=== PATIENT | female | born 1995 | race Two or more races ===

== ENCOUNTER → 2020-06-24 15:39 | Outpatient (BNVA) | payer OTHER, SELFPAY | PROVIDERS: PCP Internal Medicine; Visit Provider Physician Assistant ==

== ENCOUNTER → 2020-06-29 07:35 | Outpatient (BNVA) | payer OTHER, SELFPAY | PROVIDERS: PCP Internal Medicine; Visit Provider Surgery ==

== ENCOUNTER 2021-05-18 11:35 | Outpatient (REF) | payer OTHER, SELFPAY ==
[2021-05-18 14:35] LABS: Binax Internal Control QC Valid; Binax Now Covid-19 Ag Negative (Negative)
== END 2021-05-18 11:36 | disposition home or self-care (01) ==
LOC: HO.HMGCLDS 11:35
PROVIDERS: Visit Provider Internal Medicine
DX: Z20.822 Contact with and (suspected) exposure to COVID-19 (principal)
CPT/HCPCS: 36415; C9803

== ENCOUNTER 2021-08-08 15:13 | Outpatient (REF) | payer OTHER, SELFPAY ==
[2021-08-08 17:03] LABS: Appearance Urine CLOUDY; Color Urine YELLOW; Glucose Urine UA NEG (NEG); Leukocyte Esterase Urine 1+ (NEG); Nitrite Urine NEG (NEG); PH 5.5 (5.0-8.0); UACC Culture Trigger YES; Urine Blood TRACE (NEG); Urine Ketones NEG (NEG); Urine Protein NEG (NEG-TRACE)
[2021-08-08 17:31] LABS: Bacteria Urine TRACE /LPF; RBC Urine 0-2 /HPF (0); Squamous Epithelial Cell Urine TRACE /LPF
== END 2021-08-08 15:14 | disposition home or self-care (01) ==
LOC: HO.HMGCLDS 15:13
PROVIDERS: Visit Provider Internal Medicine
DX: R30.0 Dysuria (principal)
CPT/HCPCS: 81001; 81003; 87086

== ENCOUNTER 2021-11-02 11:50 | Outpatient (REF) | payer OTHER, SELFPAY ==
--- NOTE | ~2021-11-02 | XR_ITS ---
EXAMINATION: XR ABDOMEN COMPLETE CLINICAL INDICATION: Noninfective gastroenteritis and colitis. COMPARISON: None TECHNIQUE: 2 views of the abdomen. FINDINGS: There is scattered stool and gas seen in the colon without any significant distention. There is no organomegaly. No radiopaque calculi. The small bowel loops are normal caliber. No gross bony abnormality is seen. XR/XR abdomen 3V IMPRESSION: Mild constipation.
== END 2021-11-02 11:51 | disposition home or self-care (01) ==
LOC: HO.XRAY 11:50
PROVIDERS: PCP Internal Medicine; Visit Provider Internal Medicine
DX: K52.9 Noninfective gastroenteritis and colitis, unspecified (principal)
CPT/HCPCS: 74021

== ENCOUNTER 2022-04-21 10:21 | Outpatient (REF) | payer OTHER, SELFPAY ==
[2022-04-21 10:38] LABS: MANUAL DIFF FLAG NO
[2022-04-21 11:05] LABS: Basophils Percent Auto 0.7 % (0-2); Eosinophils Absolute Auto 0.1 X10*3/uL (0.0-0.4); Hematocrit 37.1 % (37.0-47.0); Imm Gran Abs Auto 0.01 X10*3/uL (0.00-0.03); Imm Gran Pct Auto 0.2 % (0.0-0.4); Lymphocytes Absolute Auto 1.9 X10*3/uL (1.2-4.9); Mean Corpuscular HGB Conc 32.3 g/dl (31.0-35.0); Mean Corpuscular Hemoglobin 24.9 pg (27.0-33.0); Mean Platelet Volume 10.8 fL (9.4-12.3); Monocytes Absolute Auto 0.4 X10*3/uL (0.1-1.2); Monocytes Percent Auto 6.1 % (2-11); Neutrophils Absolute Auto 3.4 x10*3/uL (2.0-8.3); Platelet Count 279 X10*3/uL (160-400); Red Blood Count 4.82 X10*6/uL (4.20-5.50); Red Cell Distribution Width 12.3 % (11.0-16.0); White Blood Count 5.7 X10*3/uL (4.8-10.8)
[2022-04-21 12:02] LABS: Alanine Aminotransferase 11 U/L (0-31); Alkaline Phosphatase 74 U/L (39-117); Anion Gap 13 (12-20); Aspartate Amino Transferase 14 U/L (5-31); Bilirubin Total 0.6 mg/dL (0.0-1.0); Blood Urea Nitrogen 12 mg/dL (9-16); Calcium 9.1 mg/dL (8.4-10.2); Carbon Dioxide 25 mmol/L (22-29); Chloride 106 mmol/L (96-108); Estimated Glomerular Filt Rate > 60; Glucose Random 81 mg/dL (60-115); Potassium 4.5 mmol/L (3.3-5.1); Sodium 139 mmol/L (135-145); TSH reflex Free T4 0.75 uIU/mL (0.32-4.0); Total Protein 6.4 g/dL (6.5-8.0); Vitamin D 25-OH Total 8.9 ng/mL (>30)
[2022-04-21 12:14] LABS: Folate 14.1 ng/mL (> or = 4.0); Vitamin B12 509 pg/mL (200-900)
== END 2022-04-21 10:22 | disposition home or self-care (01) ==
LOC: HO.LAB 10:21
PROVIDERS: PCP Internal Medicine; Visit Provider Nurse Practitioner Family
DX: Z00.00 Encounter for general adult medical examination without abnormal findings (principal)
CPT/HCPCS: 36415; 80053; 82306; 82607; 82746; 84443; 85025

== ENCOUNTER 2022-05-01 14:43 | Outpatient (REF) | payer OTHER, SELFPAY ==
[2022-05-01 17:33] LABS: Estimated Average Glucose 91 mg/dL; Hemoglobin A1c % 4.8 %
[2022-05-05 05:03] LABS: Transglutaminase Ab IgG <1.0 U/mL; Transglutaminase IgA <1.0 U/mL
== END 2022-05-01 14:44 | disposition home or self-care (01) ==
LOC: HO.LAB 14:43
PROVIDERS: PCP Internal Medicine; Visit Provider Nurse Practitioner Family
DX: K20.90 Esophagitis, unspecified without bleeding (principal); K21.9 Gastro-esophageal reflux disease without esophagitis; K58.0 Irritable bowel syndrome with diarrhea; R10.9 Unspecified abdominal pain; E11.9 Type 2 diabetes mellitus without complications
CPT/HCPCS: 36415; 83036; 86003; 86140; 86364

== ENCOUNTER → 2022-07-03 07:52 | Outpatient (BNVA) | payer OTHER, SELFPAY | PROVIDERS: PCP Internal Medicine; Visit Provider Nurse Practitioner Family | DX: Z13.89 Encounter for screening for other disorder (principal) ==

== ENCOUNTER → 2022-07-30 15:28 | Outpatient (BNVA) | payer OTHER, SELFPAY | PROVIDERS: PCP Internal Medicine; Visit Provider Nurse Practitioner Family | DX: Z13.89 Encounter for screening for other disorder (principal) ==

== ENCOUNTER 2022-09-29 19:53 | Emergency (ER) | payer OTHER, SELFPAY ==
--- NOTE | ~2022-09-29 | XR_ITS ---
EXAMINATION: XR CHEST CLINICAL INFORMATION: Cough. COMPARISON: None available. TECHNIQUE: Frontal view of the chest was obtained. FINDINGS: No significant abnormality is noted involving the heart, lungs, mediastinum, bony thorax or soft tissues. XR/XR chest 1V IMPRESSION: Unremarkable chest examination.
[2022-09-29 19:55] VITALS: BP 152/100; PULSE 100; RESP 18; TEMP 36.3; O2SAT 98; BMI 33.9
[2022-09-29 20:25] LABS: COVID-19 Test Negative (Negative); IDNOW Serial# BCCEAD1C
--- NOTE | 2022-09-29 21:10 | ED.URI ---
HPI - URI/Sore Throat General Chief Complaint: Upper Respiratory Symptoms Stated Complaint: Cough, sore throat, fatigue Time Seen by Provider: 09/29/22 21:05 Source: patient Mode of arrival: ambulatory Limitations: no limitations History of Present Illness HPI Narrative: Patient comes to the emergency room complaining of 1 and half weeks of coughing, congestion, chest hurts from coughing so much. Denies fever chills, no shortness of breath. Patient has tried Venessa, Tessalon Perles, [id number] cough syrups that any relief Related Data Home Medications Medication Instructions Recorded Confirmed ascorbic acid 7.5 mg-vit E 7.5 tab PO 07/03/22 08/23/22 unit-biotin 1,250 mcg chewable tablet (Hair,Skin,Nails with Biotin) Previous Rx's Medication Instructions Recorded cholecalciferol (vitamin D3) 50 50 mcg PO DAILY #90 tabs 07/30/22 mcg (2,000 unit) tablet methylcellulose (laxative) 500 mg 500 mg PO DAILY #90 tabs 07/30/22 tablet (Citrucel) magnesium oxide 400 mg (241.3 mg 400 mg PO BEDTIME 30 days #30 tabs 08/15/22 magnesium) tablet riboflavin (vitamin B2) 100 mg 400 mg PO DAILY 30 days #120 tabs 08/15/22 tablet sumatriptan succinate 100 mg tablet 50 - 100 mg PO .COMPLEX PRN 08/15/22 migraine headache 30 days #12 tabs cetirizine 10 mg tablet (Allergy 10 mg PO DAILY PRN allergy 09/25/22 Relief (cetirizine)) symptoms 90 days #90 tabs codeine 10 mg-guaifenesin 100 mg/5 10 ml PO Q4-6H PRN cough #120 mL 09/29/22 mL oral liquid Allergies Allergy/AdvReac Type Severity Reaction Status Date / Time No Known Allergies Allergy Verified 09/29/22 19:55 [No Known Allergies*] Review of Systems Review of Systems: Constitutional : No Weight loss, No Fever, No Chills, No Night Sweats, No Fatigue, No Malaise ENT/Mouth : No Hearing loss, No Ear Pain, No Nasal Congestion, No Sinus Pain, No Hoarseness, No sore throat, No Rhinorrhea, No Swallowing Difficulty Eyes: No Eye Pain, No Swelling, No Redness, No Foreign Body, No Discharge, No Vision Changes Cardiovascular : No Chest Pain, No SOB, No Dyspnea on Exertion, No Orthopnea, No Edema, No Palpitations Respiratory : Complaining of dry No Sputum, No Wheezing, No Smoke Exposure, No Dyspnea Gastrointestinal : No Nausea, No Vomiting, No Diarrhea, No Constipation, No abdominal Pain, No Hematochezia, No Melena Genitourinary : no irregular bleeding, No Dysuria, No Urinary Frequency, No Hematuria, No Urinary Incontinence, No Urgency, No Flank Pain, No Urinary Flow Changes, No Hesitancy Musculoskeletal : Complaining of chest muscle pains from coughing so much No joint pain, No Myalgias, No Joint Swelling Skin : No Skin Lesions, No rash Neuro : No Weakness, No Numbness, No Paresthesias, No Loss of Consciousness, No Dizziness, No Headache Psych : No Anxiety/Panic, No Depression, No SI/HI/AH/VH, No Social Issues, Heme/Lymph: No Bruising, No Bleeding,No Lymphadenopathy Endocrine : No Polyuria, No Polydipsia, No Temperature Intolerance PMFSH Past Medical History Medical History Depression ESA (generalized anxiety disorder) Iron deficiency anemia Migraine without aura, not intractable Migraines Mild major depression, single episode Obesity (BMI 30-39.9) Sickle cell trait Surgical History Hx of tonsillectomy Family History Family History Father No problems noted. Mother Migraines Hypertension Brother No problems noted. Social History Social History Housing: House Alcohol intake: never Patient Tobacco Use Status: Never used Tobacco e-Cigarette/Vaping Use: Never Used Second Hand Smoke Exposure: No Advance Directives: No Advance Directives Information Provided: No service: No Current occupational status: employed Current occupational exposures/hazards: No Cognitive needs: No Hearing needs: No Vision needs: No Physical Exam Vital Signs: Vital Signs: Last Vital Signs Temp 97.3 F 09/29/22 19:55 Pulse 100 09/29/22 19:55 Resp 18 09/29/22 19:55 BP 152/100 H 09/29/22 19:55 Pulse Ox 98 09/29/22 19:55 O2 Del Method Room Air 09/29/22 19:55 BMI result Body Mass Index 33.9 Const: Other: Appearance: Alert. Oriented X3. No acute distress. Eyes: Pupils equal, round and reactive to light. ENT: Pharynx normal. Neck: Normal inspection. Neck supple. No lymph nodes noted. No crepitus CVS: Normal heart rate and rhythm. Pulses normal. Normal S1 and S2 Respiratory: No respiratory distress. Breath sounds normal. No Wheezing. No rales Abdomen: Soft and nontender. No rigidity. No distention. Skin: Skin warm and dry. Normal skin color. Normal skin turgor. Extremities: No lower extremity edema. No Lacerations. No Rash Neuro: Oriented X 3. No motor deficit. No sensory deficit. Moving all extremities. No slurred speech. CN 2 through 12 grossly intact Psych: calm, cooperative, normal affect Medical Decision Making Medical Decision Making MDM Narrative: -patient well-appearing -COVID test is negative -my interpretation of chest x-ray : No fracture ribs, no infiltrates -patient having a viral syndrome, viral bronchitis, antibiotics not indicated Lab Data Labs: Lab Results 09/29/22 Range/Units 20:10 COVID-19 (CHONG) Negative (Negative) COVID-19 Clin Com See Note Radiology Impression Discussion of test interpretation with radiology: I have reviewed the radiologist's reading. Radiologist Impression: INDINGS: No significant abnormality is noted involving the heart, lungs, mediastinum, bony thorax or soft tissues. XR/XR chest 1V IMPRESSION: Unremarkable chest examination. ? Discharge Plan Discharge Clinical Impression: Acute viral bronchitis Patient Disposition: Home, Self-Care Instructions: Acute Bronchitis (ED) Additional Instructions: Please follow-up with your primary care physician tomorrow. If you have any worsening or new symptoms, please return to the emergency room or call 911 Prescriptions: New codeine-guaifenesin 10-100 mg/5 mL liquid 10 ml PO Q4-6H PRN (Reason: cough) Qty: 120 0RF No Action cholecalciferol (vitamin D3) 50 mcg (2,000 unit) tablet 50 mcg PO DAILY Qty: 90 0RF magnesium oxide 400 mg (241.3 mg magnesium) tablet 400 mg PO BEDTIME 30 Days Qty: 30 6RF Rx Instructions: may hold for loose stools riboflavin (vitamin B2) 100 mg tablet 400 mg PO DAILY 30 Days Qty: 120 6RF Rx Instructions: in am sumatriptan succinate 100 mg tablet 50 - 100 mg PO .COMPLEX PRN (Reason: migraine headache) 30 Days Qty: 12 6RF Rx Instructions: 50 - 100 mg orally at onset of headache, may repeat in 2 hrs PRN; max 2 tabs per day or 4 tabs/week (may take with Ibuprofen or Aleve) cetirizine [Allergy Relief (cetirizine)] 10 mg tablet 10 mg PO DAILY PRN (Reason: allergy symptoms) 90 Days Qty: 90 0RF Citrucel 500 mg tablet 500 mg PO DAILY Qty: 90 2RF Rx Instructions: take it with full glass of water Hair, Skin, Nails with Biotin 7.5-7.5-1,250 mg-unit-mcg tablet,chewable PO
== END 2022-09-29 21:25 | disposition home or self-care (01) ==
PROVIDERS: Emergency Provider Emergency Medicine; PCP Internal Medicine
DX: J20.8 Acute bronchitis due to other specified organisms (principal); Z20.822 Contact with and (suspected) exposure to COVID-19
CPT/HCPCS: 71045; 87635; 99282; 99283

== ENCOUNTER → 2022-11-14 16:01 | Outpatient (BNVA) | payer OTHER, SELFPAY | PROVIDERS: PCP Internal Medicine; Visit Provider Nurse Practitioner Family ==

== ENCOUNTER 2022-12-12 15:48 | Outpatient (AMB) | payer OTHER, SELFPAY ==
--- NOTE | 2022-12-12 16:01 | AM.OFFWIN_ITS ---
Intake Vital Signs 12/12/22 16:07 BP 122/90 H Blood Pressure Location Rt brachial Position Sitting Pulse 95 Pulse Source Pulse Oximeter Temp 98.6 F Temp Source Temporal Artery Scan Pulse Oximetry (%) 97 Oxygen Delivery Method Room Air Intake Visit Reasons: EP acute stomach pain (lobby) Intake Note: Patient here because she has been having stomach issues which she was put on f iber and some other meds to help which her GI told her to stop since she was feeling better but the pain this time is different pt states it feels like her intestines are moving around almost she has been having diarrhea for about 3 days. Patient Tobacco Use Status: Never used Tobacco Allergies No Known Allergies [No Known Allergies*] Allergy (Verified 12/17/22 06:22) Medication List - Last Reconciled 12/17/22 by Dirk Gonsales MD ascorbic acid-vitamin E-biotin 7.5-7.5-1,250 mg-unit-mcg (Hair,Skin,Nails with Biotin) tabs PO cetirizine (Allergy Relief (cetirizine)) 10 mg PO DAILY PRN 90 days cholecalciferol (vitamin D3) 50 mcg PO DAILY pantoprazole 40 mg PO DAILY riboflavin (vitamin B2) 400 mg (4 x 100 mg) PO DAILY 30 days sumatriptan succinate 50 - 100 mg orally at onset of headache, may repeat in 2 hrs PRN; max 2 tabs per day or 4 tabs/week (may take with Ibuprofen or Aleve) 30 days Do you need a note to return to daycare/school/sports/work: Yes HPI EP acute stomach pain (lobby) HPI Details See intake note. Patient continues to have abdominal pain at times. No associated diarrhea. For admits to belching and burping and passing a lot of gas. [facility] Medical History Depression ESA (generalized anxiety disorder) Iron deficiency anemia Migraine without aura, not intractable Migraines Mild major depression, single episode Obesity (BMI 30-39.9) Sickle cell trait Surgical History Hx of tonsillectomy Family History Father No problems noted. Mother Migraines Hypertension Brother No problems noted. Social History Housing: House Alcohol intake: never Patient Tobacco Use Status: Never used Tobacco e-Cigarette/Vaping Use: Never Used Second Hand Smoke Exposure: No service: No Current occupational status: employed Current occupational exposures/hazards: No Cognitive needs: No Hearing needs: No Vision needs: No Physical Exam Vital Signs: Last Vital Signs Temp 98.6 F 12/12/22 16:07 Pulse 95 12/12/22 16:07 BP 122/90 H 12/12/22 16:07 Pulse Ox 97 12/12/22 16:07 Oxygen Delivery Method Room Air 12/12/22 16:07 Const General: cooperative and healthy appearing Nutritional Appearance: well nourished Orientation/consciousness: patient oriented x3 Limitations: no limitations HEENT Head: Yes normal to inspection Eyes General: appearance normal, both eyes and all related structures Neck Neck: Yes normal visual inspection Chest Chest palpation & inspection: normal palpation of entire chest wall Resp Effort & Inspection: normal respiratory effort Neuro General: patient oriented x3 Assessment & Plan Assessment & Plan (1) Abdominal pain: Code(s): R10.9 - Unspecified abdominal pain Plan: Patient was advised to follow-up with her primary care provider for more workup. Meanwhile pantoprazole has been prescribed for relief of symptoms. Patient was explained that this measure is temporary and it will help till she sees her primary care provider. Medications: New pantoprazole 40 mg PO DAILY 30 tabs 0RF Coding Level of Care Code Est Pt Level 3 (47806) Diagnoses Abdominal pain R10.9
[2022-12-12 16:07] VITALS: BP 122/90; PULSE 95; TEMP 37; O2SAT 97
== END 2022-12-12 16:21 | disposition home or self-care (01) ==
PROVIDERS: PCP Internal Medicine; Visit Provider Internal Medicine
DX: R10.9 Unspecified abdominal pain (principal)
CPT/HCPCS: 99213

== ENCOUNTER 2022-12-19 09:20 | Outpatient (REF) | payer OTHER, SELFPAY ==
[2022-12-19 11:21] LABS: Alanine Aminotransferase 11 U/L (0-31); Alkaline Phosphatase 64 U/L (39-117); Aspartate Amino Transferase 14 U/L (5-31); Bilirubin Direct 0.2 mg/dL (0.0-0.5); Bilirubin Total 0.7 mg/dL (0.0-1.0); Lipase 37 U/L (8-78); Total Protein 6.9 g/dL (6.5-8.0)
[2022-12-19 11:50] LABS: Folate 12.2 ng/mL (> or = 4.0); Vitamin B12 541 pg/mL (200-900)
[2022-12-24 15:18] LABS: Vitamin D 25-OH, D2 <4 ng/mL; Vitamin D 25-OH, D3 14 ng/mL; Vitamin D 25-OH, Total 14 ng/mL (30-100)
== END 2022-12-19 09:21 | disposition home or self-care (01) ==
LOC: HO.LAB 09:20
PROVIDERS: PCP Internal Medicine; Visit Provider Nurse Practitioner Family
DX: R10.9 Unspecified abdominal pain (principal); R19.7 Diarrhea, unspecified; E55.9 Vitamin D deficiency, unspecified
CPT/HCPCS: 36415; 80076; 82306; 82607; 82746; 83690

== ENCOUNTER 2022-12-25 09:12 | Outpatient (AMB) | payer OTHER, SELFPAY ==
[2022-12-25 09:15] VITALS: BP 120/84; PULSE 96; O2SAT 98; BMI 34.6
--- NOTE | 2022-12-25 09:15 | MHC.OFFVIS ---
Intake Vital Signs 12/25/22 09:15 Height 5 ft 6 in Weight 214 lb 4 oz BMI 34.6 BP 120/84 Blood Pressure Location Lt brachial Position Sitting Pulse 96 Pulse Source Pulse Oximeter Pulse Oximetry (%) 98 Oxygen Delivery Method Room Air Intake Visit Reasons: 2m follow up Migraine - Confirmed Intake Note: Pt presents as a 2 month f/u migraines. Going good I guess, Still getting them. Any time I get pain I take the medication and it helps a little but it makes me drowsy. 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 Allergies No Known Allergies [No Known Allergies*] Allergy (Verified 12/25/22 09:18) Medication List - Last Reconciled 12/25/22 by MERLIN Rai ascorbic acid-vitamin E-biotin 7.5-7.5-1,250 mg-unit-mcg (Hair,Skin,Nails with Biotin) tabs PO cetirizine (Allergy Relief (cetirizine)) 10 mg PO DAILY PRN 90 days cholecalciferol (vitamin D3) 50 mcg PO DAILY pantoprazole 40 mg PO DAILY riboflavin (vitamin B2) 400 mg (4 x 100 mg) PO DAILY 30 days rizatriptan 5 - 10 mg (0.5 - 1 x 10 mg) PO Q2H PRN 21 days sumatriptan succinate 50 - 100 mg orally at onset of headache, may repeat in 2 hrs PRN; max 2 tabs per day or 4 tabs/week (may take with Ibuprofen or Aleve) 30 days HPI HPI Comments History of Present Illness Details 27-yr-old female presents for f/u visit for migraine Pt reports she is having a daily pounding pain a/w photophobia which she attributes to an increase in her GI s/s (postprandial and generlaized pain, diarrhea after eating). She is f/b GI. She has had 3 typical migraines in the past month. Sumatriptan can be helpful but causes sleepiness. She is not sleeping well. She snores, has difficulty initiating sleep and falling back to sleep, wakes up tired, always feel tired. She is rarely sedentary. [facility] Medical History Depression ESA (generalized anxiety disorder) Iron deficiency anemia Migraine without aura, not intractable Migraines Mild major depression, single episode Obesity (BMI 30-39.9) Sickle cell trait Surgical History Hx of tonsillectomy Family History Father No problems noted. Mother Migraines Hypertension Brother No problems noted. Social History Housing: House Alcohol intake: never Patient Tobacco Use Status: Never used Tobacco e-Cigarette/Vaping Use: Never Used Second Hand Smoke Exposure: No service: No Current occupational status: employed Current occupational exposures/hazards: No Cognitive needs: No Hearing needs: No Vision needs: No Review of Systems Const All systems reviewed & are unremarkable except as noted in HPI and below Physical Exam Vital Signs: Last Vital Signs Pulse 96 12/25/22 09:15 BP 120/84 12/25/22 09:15 Pulse Ox 98 12/25/22 09:15 Oxygen Delivery Method Room Air 12/25/22 09:15 BMI result Body Mass Index 34.6 Const General: cooperative and no acute distress Orientation/consciousness: patient oriented x3 HEENT Head: Yes normocephalic Resp Effort & Inspection: normal respiratory effort and able to speak in complete sentences Neuro General: patient oriented x3, gait normal and CN's II-XI intact bilaterally Cognition (Neuro): normal cognition Motor exam (neuro): 5/5 motor strength present throughout Psych Appearance: grossly normal Mental Status: mental status grossly normal Speech and movement: Normal speech and movement present Affect: normal affect Attitude: cooperative Thought process: Normal thought process present Thought content: Normal thought content present Insight: Good insight present (Psych) Judgement: Good judgement present (Psych) Assessment & Plan Assessment & Plan (1) Sleep difficulties: Code(s): G47.9 - Sleep disorder, unspecified (2) Excessive daytime sleepiness: Comment: EDS 10 Code(s): G47.19 - Other hypersomnia (3) Migraine without aura, not intractable: Code(s): G43.009 - Migraine without aura, not intractable, without status migrainosus Plan Pt advised to undergo HST to assess for sleep apnea. For acute headache treatment: Hold Sumatriptan to 50-100mg- causes sleepiness. Trial Rizatriptan prn- in hopes this is better tolerated. Previous acute migraine medication trials: Unsure Acute migraine medication contraindications: None at this time ? For headache prevention medication: Continue Riboflavin 400mg qam Stopped Magnesium 400mg qhs- d/t GI s/s. Previous migraine prevention medication trials: Topiramate- ineffective and caused mood changes. Migraine prevention medication contraindications: None at this time. Future considerations: Amitriptyline. ? f/u in 3-4 months or sooner Orders: Orders RT home sleep study Today E66.9 - Obesity, unspecified, G47.19 - Other hypersomnia, G47.9 - Sleep disorder, unspecified, R06.83 - Snoring Medications: New rizatriptan max 2 tabs per day or 4 tabs per week 5 - 10 mg (0.5 - 1 x 10 mg) PO Q2H 21 days PRN 12 tabs 3RF migraine headache Quality Reporting (2019) Adult ([facility] 138/2//69) Smoking risk assessment performed?: Yes Patient Tobacco Use Status: Never used Tobacco Coding Level of Care Code Est Pt Level 4 (74757) Diagnoses Sleep difficulties G47.9 Excessive daytime sleepiness G47.19 Migraine without aura, not intractable G43.009
== END 2022-12-25 09:53 | disposition home or self-care (01) ==
PROVIDERS: Visit Provider Nurse Practitioner Family
DX: G47.9 Sleep disorder, unspecified (principal); G47.19 Other hypersomnia; G43.009 Migraine without aura, not intractable, without status migrainosus
CPT/HCPCS: 99214

== ENCOUNTER → 2022-12-25 09:12 | Outpatient (BNVA) | payer OTHER, SELFPAY | PROVIDERS: Visit Provider Nurse Practitioner Family ==

== ENCOUNTER 2022-12-26 08:50 | Outpatient (REF) | payer OTHER, SELFPAY ==
[2023-01-03 22:24] LABS: Pancreatic Elastase-1 >500 mcg/g
== END 2022-12-26 08:51 | disposition home or self-care (01) ==
LOC: HO.LNP 08:50
PROVIDERS: Visit Provider Nurse Practitioner Family
DX: R10.9 Unspecified abdominal pain (principal)
CPT/HCPCS: 82656

== ENCOUNTER → 2023-01-29 09:56 | Outpatient (REF) | payer OTHER, SELFPAY | LOC: HO.SL 09:56 | PROVIDERS: PCP Internal Medicine; Visit Provider Nurse Practitioner Family | DX: G47.9 Sleep disorder, unspecified (principal); G47.19 Other hypersomnia; E66.9 Obesity, unspecified; R06.83 Snoring | CPT/HCPCS: 95806 ==

== ENCOUNTER → 2023-01-29 10:06 | Outpatient (BNV) | payer OTHER, SELFPAY | PROVIDERS: PCP Internal Medicine; Visit Provider Psychiatry & Neurology Neurology | DX: R06.83 Snoring (principal) | CPT/HCPCS: 95806 ==

== ENCOUNTER 2023-04-09 12:39 | Outpatient (AMB) | payer OTHER, SELFPAY ==
[2023-04-09 12:44] VITALS: BP 126/80; BMI 34.5
--- NOTE | 2023-04-09 12:44 | MHC.PC.OV ---
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 Accompanied by: Self / Same As Patient Allergies No Known Allergies [No Known Allergies*] Allergy (Verified 04/09/23 12:57) Medication List - Last Reconciled 04/09/23 by Liza Carlos MD ascorbic acid-vitamin E-biotin 7.5-7.5-1,250 mg-unit-mcg (Hair,Skin,Nails with Biotin) tabs PO cetirizine (Allergy Relief (cetirizine)) 10 mg PO DAILY PRN 90 days cholecalciferol (vitamin D3) 50 mcg PO DAILY pantoprazole 40 mg PO DAILY riboflavin (vitamin B2) 400 mg (4 x 100 mg) PO DAILY 30 days rizatriptan 5 - 10 mg (0.5 - 1 x 10 mg) PO Q2H PRN 21 days sumatriptan succinate 50 - 100 mg orally at onset of headache, may repeat in 2 hrs PRN; max 2 tabs per day or 4 tabs/week (may take with Ibuprofen or Aleve) 30 days Tobacco use date assessed: 08/23/22 Dental Screening Dental Screen Date: 04/09/23 Did you have a dental visit in the last 12 months?: Yes Did you have a dental problem in the last 6 months where you did not have access to dental care?: No Was dental information given to patient?: Patient has dentist HPI HPI Comments History of Present Illness Details This is a 28-year-old female that comes for her physical exam. Last Pap smear was 2019 and was normal. No chest pain or shortness of breath. Migraines follow by Neurology. [facility] Medical History ESA (generalized anxiety disorder) Migraines Mild major depression, single episode Depression Obesity (BMI 30-39.9) Migraine without aura, not intractable Iron deficiency anemia Sickle cell trait Surgical History Hx of tonsillectomy Family History (Updated 04/09/23 @ 13:00 by Liza Carlos MD) Father Hypertension Mother Migraines Hypertension Brother No problems noted. Social History Housing: House Alcohol intake: never Patient Tobacco Use Status: Never used Tobacco e-Cigarette/Vaping Use: Never Used Second Hand Smoke Exposure: No service: No Current occupational status: employed Current occupational exposures/hazards: No Cognitive needs: No Hearing needs: No Vision needs: No Questionnaire Thrive Questionnaire Date Thrive assessed: 08/23/22 ESA-7 AMB Questionnaire ESA-7 Date ESA - 7 assessed: 08/23/22 Source: Developed by Drs. Rd Garnett, Anna Armstrong, Jhonny Galan and colleagues, with an educational erin from [employer]. Review of Systems Const All systems reviewed & are unremarkable except as noted in HPI and below Eyes Reports no additional complaints, Denies change in vision and Denies other visual disturbances Card Denies chest pain at rest, Denies chest pain with activity, Denies edema, Denies irregular heart rhythm, Denies claudication, Denies dyspnea, Denies dyspnea on exertion, Denies orthopnea, Denies paroxysmal nocturnal dyspnea and Denies slow heart rate Resp Denies cough, Denies dyspnea and Denies dyspnea on exertion GI Denies abdominal pain, Denies change in bowel habits, Denies excessive flatus, Denies nausea and Denies vomiting Denies urinary incontinence, Denies urinary hesitancy and Denies urinary urgency Musc Denies abnormal gait, Denies atrophy, Denies deformity and Denies limited range of motion Skin/Breast Denies bleeding lesions, Denies changing lesions and Denies rash Neuro Denies abnormal gait, Denies behavioral changes, Denies confusion and Denies lack of coordination Psych Denies behavioral changes and Denies confusion Physical exam (Primary Care) Vital Signs: Last Vital Signs BP 126/80 04/09/23 12:44 BMI result Body Mass Index 34.5 Tobacco/Smoking Status: Tobacco use Status Tobacco use date assessed 08/23/22 04/09/23 12:52 Patient Tobacco Use Status Never used Tobacco 04/09/23 12:52 e-Cigarette/Vaping Use Never Used 04/09/23 12:52 Thrive Assessment: Date of Thrive Assessment Date Thrive assessed 08/23/22 04/09/23 12:52 Const General: No confusion Orientation/consciousness: patient oriented x3 and No confusion HENMT Head: Yes normal to inspection, Yes normocephalic and Yes atraumatic Ears: external ears normal Eyes General: appearance normal, both eyes and all related structures Eyelids: Yes eyelids normal Conjunctivae: conjunctivae normal Neck Neck: Yes normal visual inspection and Yes supple Resp Effort & Inspection: normal respiratory effort Auscultation: clear to auscultation bilaterally Cardio Jugular venous distension: no JVD Rate: regular rate Rhythm: regular rhythm Heart sounds: S1 normal heart sound present and S2 normal heart sound present GI Inspection: Yes normal to inspection Palpation (GI): Soft to palpation and nontender Auscultation: normal bowel sounds Skin General skin exam: no rashes or lesions noted Neuro General: patient oriented x3, no focal motor deficits and No confusion Extrem General: Yes full ROM Psych Appearance: grossly normal Office Procedures Flu Questionnaire Does the patient have a severe egg allergy?: No Immunizations flu vacc [id number] 6mos up(PF) 60 mcg(15 mcgx4)/0.5 mL IM syringe Performing Provider: Liza Carlos MD [facility] Documented (not given) by: JOEL Low on 04/09/23 12:53 Reason Not Given: Patient Refused Assessment and Plan Assessment & Plan (1) Adult general medical exam: Code(s): Z00.00 - Encounter for general adult medical examination without abnormal findings Plan: Repeat in a year. Orders: Orders Vitamin D 25-OH Total Today E55.9 - Vitamin D deficiency, unspecified Influenza [id number] Immunization Today Z23 - Encounter for immunization Lipid Panel Today Z00.00 - Encounter for general adult medical examination without abnormal findings Comprehensive [place]. Panel Fast Today Z00.00 - Encounter for general adult medical examination without abnormal findings Coding Level of Care Code Est Pt Prev Care 18-39y(27386) Diagnoses Adult general medical exam Z00.00 Time Spent (min) 32
== END 2023-04-09 13:08 | disposition home or self-care (01) ==
PROVIDERS: Visit Provider Internal Medicine
DX: Z00.00 Encounter for general adult medical examination without abnormal findings (principal)
CPT/HCPCS: 99395

== ENCOUNTER 2023-05-29 12:33 | Outpatient (AMB) | payer OTHER, SELFPAY ==
[2023-05-29 12:41] VITALS: BP 122/78; PULSE 78; TEMP 36.9; O2SAT 97; BMI 34.5
--- NOTE | 2023-05-29 12:41 | MHC.OFFWIV ---
Intake Vital Signs 05/29/23 12:41 Height 5 ft 6 in Weight 214 lb BMI 34.5 BP 122/78 Blood Pressure Location Rt brachial Position Sitting Pulse 78 Pulse Source Pulse Oximeter Temp 98.4 F Temp Source Oral Pulse Oximetry (%) 97 Oxygen Delivery Method Room Air Intake Visit Reasons: EST/cough and head pressure(lobby masked) Intake Note: pt is here for c.o cough, head pressure Patient Tobacco Use Status: Never used Tobacco Allergies No Known Allergies [No Known Allergies*] Allergy (Verified 05/29/23 12:41) Do you need a note to return to daycare/school/sports/work: Yes HPI HPI Comments History of Present Illness Details This is a 28-year-old female with a past medical history of migraine headaches presenting for evaluation of a dry cough and fever that she has had the past 2 days. Patient states that she returned over the weekend from a 6 day cruise and this is when her symptoms started. Patient took a test for COVID-19 at home which was negative however she states all 4 members of her family have similar symptoms. Patient denies having any headache, sore throat, ear pain or shortness of breath. [facility] Medical History SEA (generalized anxiety disorder) Migraines Mild major depression, single episode Depression Obesity (BMI 30-39.9) Migraine without aura, not intractable Iron deficiency anemia Sickle cell trait Surgical History Hx of tonsillectomy Family History Father Hypertension Mother Migraines Hypertension Brother No problems noted. Social History Housing: House Alcohol intake: never Patient Tobacco Use Status: Never used Tobacco e-Cigarette/Vaping Use: Never Used Second Hand Smoke Exposure: No service: No Current occupational status: employed Current occupational exposures/hazards: No Cognitive needs: No Hearing needs: No Vision needs: No Review of Systems Const All systems reviewed & are unremarkable except as noted in HPI and below Eyes Reports no additional complaints ENT Reports no additional complaints, Denies otalgia and Denies sore throat Card Reports as per HPI, Denies chest pain and Denies dyspnea Resp Denies chest congestion, Reports cough, Denies hemoptysis and Denies dyspnea Psych Reports no additional complaints Gopi/Lymph Reports no additional complaints Aller/Immun Reports no additional complaints Physical Exam Vital Signs: Last Vital Signs Temp 98.4 F 05/29/23 12:41 Pulse 78 05/29/23 12:41 BP 122/78 05/29/23 12:41 Pulse Ox 97 05/29/23 12:41 Oxygen Delivery Method Room Air 05/29/23 12:41 BMI result Body Mass Index 34.5 Afebrile Const General: cooperative, healthy appearing, comfortable and no acute distress Nutritional Appearance: well nourished Orientation/consciousness: patient oriented x3 Limitations: no limitations HEENT Head: Yes normal to inspection Ears: hearing grossly normal bilaterally, external ears normal, TM's normal bilaterally and EAC's normal General nose exam: Normal external nose present Face and sinus: Yes normal facial exam and Yes sinuses nontender Mouth: Normal oral and palatal mucosa present Throat: Yes postnasal drainage Eyes Eyelids: Yes eyelids normal Conjunctivae: conjunctivae normal Sclerae: sclerae normal Corneas: corneas normal Pupils: Equal, round and reactive pupils present EOM: EOMs intact bilaterally Neck Lymphatic: no lymphadenopathy noted Resp Effort & Inspection: normal respiratory effort, normal respiratory pattern, no cough and no use of accessory muscles Auscultation: clear to auscultation bilaterally and lung sounds not diminished Cardio Rate: regular rate Rhythm: regular rhythm Skin General skin exam: no rashes or lesions noted Neuro General: patient oriented x3 Cranial nerves: Yes Equal, round and reactive pupils present Psych Appearance: grossly normal Mental Status: mental status grossly normal Insight: Good insight present (Psych) Judgement: Good judgement present (Psych) Assessment & Plan Assessment & Plan (1) Upper respiratory infection: Comment: Patient is afebrile in no acute distress, not hypoxic. Code(s): J06.9 - Acute upper respiratory infection, unspecified Qualifiers: URI type: unspecified viral URI Qualified Code(s): J06.9 - Acute upper respiratory infection, unspecified Plan: Ibuprofen or Tylenol as needed if fevers recur; SARS panel pending. Coding Level of Care Code Est Pt Level 3 (10813) Diagnoses Viral upper respiratory tract infection J06.9 URI type: unspecified viral URI Time Spent (min) 20
== END 2023-05-29 14:05 | disposition home or self-care (01) ==
PROVIDERS: PCP Internal Medicine; Visit Provider Physician Assistant
DX: J06.9 Acute upper respiratory infection, unspecified (principal)
CPT/HCPCS: 99213

== ENCOUNTER 2023-05-29 16:26 | Outpatient (REF) | payer OTHER, SELFPAY ==
[2023-05-29 18:24] LABS: Influenza A PCR POSITIVE (Negative); Influenza B PCR NEGATIVE (Negative); Resp Syncy Virus RNA Qual PCR NEGATIVE (Negative); SARS COV2 PCR INHOUSE NEGATIVE (Negative)
== END 2023-05-29 16:27 | disposition home or self-care (01) ==
LOC: HO.LNP 16:26
PROVIDERS: Visit Provider Internal Medicine
DX: Z11.52 Encounter for screening for COVID-19 (principal); Z20.822 Contact with and (suspected) exposure to COVID-19; R09.89 Other specified symptoms and signs involving the circulatory and respiratory systems
CPT/HCPCS: 0241U

== ENCOUNTER → 2023-07-12 15:30 | Outpatient (BNVA) | payer OTHER, SELFPAY | PROVIDERS: PCP Internal Medicine; Visit Provider Physician Assistant | DX: S60.471A Other superficial bite of left index finger, initial encounter (principal); W54.0XXA Bitten by dog, initial encounter | CPT/HCPCS: 99203 ==

== ENCOUNTER 2023-07-17 14:37 | Outpatient (AMB) | payer OTHER, SELFPAY ==
[2023-07-17 14:47] VITALS: BMI 34.9
--- NOTE | 2023-07-17 14:47 | MHC.OFFVIS ---
Intake Vital Signs 07/17/23 14:47 Height 5 ft 6 in Weight 216 lb BMI 34.9 Intake Visit Reasons: f/u appt-Conf Intake Note: Patient presents for follow up appt. I'm still having headaches but I think it's due to the lack of sleep. Allergies No Known Allergies [No Known Allergies*] Allergy (Verified 07/17/23 14:52) HPI HPI Comments History of Present Illness Details 28-yr-old female presents for f/u visit. Pt denies any significant interval medical changes. Pt has had one severe headache since the last visit 6 months ago. She can still have mild headaches r/t poor sleep. The Rizatriptan and sleep helps. Baseline headache characteristics: Prodrome of head pressure f/b Severe frontal region pounding (like being hit on the head) a/w Nausea, photophobia, phonophobia. Postdrome of tiredness and trouble sleeping. Her sleep study was normal- AHI 0.9/hr w/ O2 [place] 90%. She is able to fall asleep, but once she wakes up she cannot fall back asleep for a few hours, and then falls back asleep shortly before she needs to wake up in the am. Tosses and turns. Prone to ruminating thoughts. thinks she has anxiety- but pt does not believe this. Denies restlessness when sitting or leg cramps. Working 2 jobs- [employer] in the am and works as a [employer] 5-7:30/8pm. Listens to her phone- a you tube video where people are talking, like a Telenovela or citizenship question review- then falls asleep. But once she wakes up, her has shut off her phone, and she does not use it again. Her is using a CPAP- this does not bother her. No caffeine use. In the past month- she is eating better- stopped all Cola intake or sugary coffees. She is exercising 3 x's per week- cardio x's 1.5 hrs (around 5pm). Bedtime is between 10-11pm and Wake up time 6:30-7am. In general she does not feel like a morning person. [facility] Medical History ESA (generalized anxiety disorder) Migraines Mild major depression, single episode Depression Obesity (BMI 30-39.9) Migraine without aura, not intractable Iron deficiency anemia Sickle cell trait Surgical History Hx of tonsillectomy Family History Father Hypertension Mother Migraines Hypertension Brother No problems noted. Social History Housing: House Alcohol intake: never Patient Tobacco Use Status: Never used Tobacco e-Cigarette/Vaping Use: Never Used Second Hand Smoke Exposure: No service: No Current occupational status: employed Current occupational exposures/hazards: No Cognitive needs: No Hearing needs: No Vision needs: No Physical Exam Vital Signs: BMI result Body Mass Index 34.9 Const General: cooperative and no acute distress Orientation/consciousness: patient oriented x3 Resp Effort & Inspection: normal respiratory effort and able to speak in complete sentences Neuro General: patient oriented x3 Cranial nerves: Yes CN's II-XII intact bilaterally Cognition (Neuro): normal cognition Psych Appearance: grossly normal Mental Status: mental status grossly normal Speech and movement: Normal speech and movement present Affect: normal affect Attitude: cooperative Assessment & Plan Assessment & Plan (1) Excessive daytime sleepiness: Comment: EDS 10 Code(s): G47.19 - Other hypersomnia (2) Snoring: Code(s): R06.83 - Snoring (3) Migraine without aura: Code(s): G43.009 - Migraine without aura, not intractable, without status migrainosus (4) Sleep difficulties: Code(s): G47.9 - Sleep disorder, unspecified Plan For sleep difficulties: May try OTC Melatonin 3-6mg q evening. Discussed strategies to improve sleep hygiene. Pt may benefit from reading/listening to CBTi resources- list of resources shared w/ pt. Future considerations- in-lab PSG. For acute headache treatment: Continue Rizatriptan prn- in hopes this is better tolerated. Previous acute migraine medication trials: Sumatriptan to 50-100mg- caused sleepiness Acute migraine medication contraindications: None at this time ? For headache prevention medication: Continue Riboflavin 400mg qam Previous migraine prevention medication trials: Topiramate- ineffective and caused mood changes. Magnesium 400mg qhs- d/t GI s/s. Migraine prevention medication contraindications: None at this time. Future considerations: Amitriptyline. ? f/u in 3-4 months or sooner Quality Reporting (2019) Adult ([facility] 13807/04/68) Smoking risk assessment performed?: Yes Patient Tobacco Use Status: Never used Tobacco Coding Level of Care Code Est Pt Level 4 (95078) Diagnoses Excessive daytime sleepiness G47.19 Snoring R06.83 Migraine without aura G43.009 Sleep difficulties G47.9
== END 2023-07-17 15:57 | disposition home or self-care (01) ==
PROVIDERS: PCP Internal Medicine; Visit Provider Nurse Practitioner Family
DX: G47.19 Other hypersomnia (principal); R06.83 Snoring; G43.009 Migraine without aura, not intractable, without status migrainosus; G47.9 Sleep disorder, unspecified
CPT/HCPCS: 99214

== ENCOUNTER → 2023-07-17 14:37 | Outpatient (BNVA) | payer OTHER, SELFPAY | PROVIDERS: PCP Internal Medicine; Visit Provider Nurse Practitioner Family ==

== ENCOUNTER 2023-11-05 08:03 | Outpatient (AMB) | payer OTHER, SELFPAY ==
[2023-11-05 08:10] VITALS: BP 126/80; PULSE 79; TEMP 37; O2SAT 97; BMI 34.4
--- NOTE | 2023-11-05 08:10 | MHC.OFFWIV ---
Intake Vital Signs 11/05/23 08:10 Height 5 ft 6 in Weight 213 lb BMI 34.4 BP 126/80 Blood Pressure Location Lt brachial Position Sitting Pulse 79 Pulse Source Pulse Oximeter Temp 98.6 F Temp Source Oral Pulse Oximetry (%) 97 Intake Visit Reasons: EP headache/body congestion cough Intake Note: pt is here for headache, body ache with cough and congestion Patient Tobacco Use Status: Never used Tobacco Allergies No Known Allergies [No Known Allergies*] Allergy (Verified 11/05/23 08:14) Do you need a note to return to daycare/school/sports/work: Yes HPI HPI Comments History of Present Illness Details 28-year-old female presents today complaining of myalgias fever and fatigue for the last 2 days. She was positive for COVID-19 at home [facility] Medical History ESA (generalized anxiety disorder) Migraines Mild major depression, single episode Depression Obesity (BMI 30-39.9) Migraine without aura, not intractable Iron deficiency anemia Sickle cell trait Surgical History Hx of tonsillectomy Family History Father Hypertension Mother Migraines Hypertension Brother No problems noted. Social History Housing: House Alcohol intake: never Patient Tobacco Use Status: Never used Tobacco e-Cigarette/Vaping Use: Never Used Second Hand Smoke Exposure: No service: No Current occupational status: employed Current occupational exposures/hazards: No Cognitive needs: No Hearing needs: No Vision needs: No Review of Systems Const All systems reviewed & are unremarkable except as noted in HPI and below Eyes Reports no additional complaints ENT Reports nasal congestion Card Reports no additional complaints Resp Reports cough (Mild) GI Reports no additional complaints Reports no additional complaints Musc Reports myalgias Skin/Breast Reports system reviewed and no additional complaints, except as documented Physical Exam Vital Signs: Last Vital Signs Temp 98.6 F 11/05/23 08:10 Pulse 79 11/05/23 08:10 BP 126/80 11/05/23 08:10 Pulse Ox 97 11/05/23 08:10 BMI result Body Mass Index 34.4 HEENT Head: Yes normal to inspection, Yes normocephalic and Yes atraumatic Ears: hearing grossly normal bilaterally and TM's normal bilaterally Throat: Yes posterior oropharynx normal Resp Effort & Inspection: normal respiratory effort Auscultation: clear to auscultation bilaterally Cardio Rate: regular rate Rhythm: regular rhythm Assessment & Plan Assessment & Plan (1) COVID: Code(s): U07.1 - COVID-19 Plan: The patient was put on Paxlovid and given a note for work. She will push fluids and rest at home Plan See plan Orders: Orders SARS-CoV2/FLU/RSV Today U07.1 - COVID-19 Medications: New nirmatrelvir-ritonavir 300 mg (150 mg x 2)-100 mg (Paxlovid) take TWO 150 mg tablets of nirmatrelvir with ONE 100 mg tablet of ritonavir twice daily for 5 days PO 30 ea 0RF Coding Level of Care Code Est Pt Level 3 (41680) Diagnoses COVID U07.1
== END 2023-11-05 09:17 | disposition home or self-care (01) ==
PROVIDERS: PCP Internal Medicine; Visit Provider Physician Assistant Medical
DX: U07.1 COVID-19 (principal)
CPT/HCPCS: 99213

== ENCOUNTER 2023-11-05 09:00 | Outpatient (REF) | payer OTHER, SELFPAY | END 2023-11-05 09:01 | disposition home or self-care (01) | LOC: HO.LAB 09:00 | PROVIDERS: Visit Provider Physician Assistant Medical | DX: Z13.89 Encounter for screening for other disorder (principal) ==

== ENCOUNTER 2023-11-05 11:50 | Outpatient (REF) | payer OTHER, SELFPAY ==
[2023-11-05 12:55] LABS: Influenza A PCR NEGATIVE (Negative); Influenza B PCR NEGATIVE (Negative); Resp Syncy Virus RNA Qual PCR NEGATIVE (Negative); SARS COV2 PCR INHOUSE POSITIVE (Negative)
== END 2023-11-05 11:51 | disposition home or self-care (01) ==
LOC: HO.LNP 11:50
PROVIDERS: Visit Provider Physician Assistant Medical
DX: U07.1 COVID-19 (principal)
CPT/HCPCS: 0241U

== ENCOUNTER 2023-12-12 19:00 | Emergency (ER) | payer OTHER, SELFPAY ==
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
[2023-12-12 19:14] VITALS: BP 135/93; PULSE 93; RESP 18; TEMP 36.6; O2SAT 98; BMI 34.7
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
[2023-12-12] MEDS: Ketorolac Tromethamine 30 MG/ML VIAL IM (20:28)
--- NOTE | 2023-12-12 20:34 | PC.NURSE ---
pt medicated for pain per order, pharmacy called for missing medication
[2023-12-12] MEDS: SUMAtriptan succinate 100 MG TABLET PO (20:42)
[2023-12-12 20:46] VITALS: BP 142/91; PULSE 78; RESP 16; TEMP 36.3; O2SAT 98
[2023-12-12 21:15] VITALS: BP 142/91; PULSE 78; RESP 16; TEMP 36.3; O2SAT 98
== END 2023-12-12 21:15 | disposition home or self-care (01) ==
PROVIDERS: Emergency Provider Emergency Medicine; PCP Internal Medicine
DX: Z04.1 Encounter for examination and observation following transport accident (principal); G43.909 Migraine, unspecified, not intractable, without status migrainosus; M25.512 Pain in left shoulder; Z79.899 Other long term (current) drug therapy
CPT/HCPCS: 73030; 96372; 99283; 99284; J1885

== ENCOUNTER 2023-12-20 12:24 | Outpatient (AMB) | payer OTHER, SELFPAY ==
[2023-12-20 12:31] VITALS: BP 118/78; PULSE 78; O2SAT 99; BMI 34.5
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
== END 2023-12-20 13:06 | disposition home or self-care (01) ==
PROVIDERS: PCP Internal Medicine; Visit Provider Nurse Practitioner Family
DX: S46.912A Strain of unspecified muscle, fascia and tendon at shoulder and upper arm level, left arm, initial encounter (principal); M54.50 Low back pain, unspecified
CPT/HCPCS: 99214

== ENCOUNTER 2024-03-24 07:07 | Outpatient (RCR) | payer OTHER, SELFPAY ==
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
== END 2024-03-24 07:58 | disposition home or self-care (01) ==
LOC: HO.PT 07:07
PROVIDERS: PCP Internal Medicine; Visit Provider Nurse Practitioner Family
DX: S46.912D Strain of unspecified muscle, fascia and tendon at shoulder and upper arm level, left arm, subsequent encounter (principal)
CPT/HCPCS: 97110; 97112; 97140; 97162; 97530

== ENCOUNTER 2024-06-05 13:25 | Outpatient (AMB) | payer OTHER, SELFPAY ==
[2024-06-05 13:29] VITALS: BMI 35.2
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
== END 2024-06-05 14:30 | disposition home or self-care (01) ==
PROVIDERS: PCP Internal Medicine; Visit Provider Nurse Practitioner Family
DX: G43.009 Migraine without aura, not intractable, without status migrainosus (principal); G47.9 Sleep disorder, unspecified
CPT/HCPCS: 99214

== ENCOUNTER → 2024-06-05 13:25 | Outpatient (BNVA) | payer OTHER, SELFPAY | PROVIDERS: PCP Internal Medicine; Visit Provider Nurse Practitioner Family ==

== ENCOUNTER 2024-06-08 07:53 | Outpatient (AMB) | payer OTHER, SELFPAY ==
--- NOTE | 2024-06-08 08:17 | A.OFFVIS_ITS ---
VS Expanded 06/08/24 08:25 Height 5 ft 6 in Weight 218 lb 2 oz BMI 35.2 Body Fat % 44.3 Body Fat Mass 96.6 Fat Free Mass 121.4 Visceral Fat Rating 9 Body Water % 39.6 Body Water Mass 86.4 Basal Metabolic Rate/Score 1,717 Intake Visit Reasons: [employer] BMI 35.2 Allergies No Known Allergies [No Known Allergies*] Allergy (Verified 06/08/24 08:17) Medication List - Last Reconciled 06/08/24 by Isaac Coker MD cetirizine (Allergy Relief (cetirizine)) 10 mg PO DAILY PRN 90 days famotidine (Pepcid) 20 mg PO BEDTIME naproxen 500 mg PO Q8-12H PRN propranolol ER 60 mg PO BEDTIME 30 days sumatriptan succinate 50 - 100 mg orally at onset of headache, may repeat in 2 hrs PRN; max 2 tabs per day or 4 tabs/week (may take with Ibuprofen or Aleve) 30 days ubrogepant (Ubrelvy) 50 - 100 mg (0.5 - 1 x 100 mg) PO ONCE PRN 30 days HPI HPI [employer] [facility] BMI 35.2: Details: Start time: 8.10am, End time: 8.46am ?I spent 31 minutes speaking with the patient on the phone plus an additional 5 minutes reviewing and updating records for a total of 36 minutes HPI Comments Details: Previous weight loss efforts: self diets, exercise Wakes up: 6.30am, Sleeps: 11pm Breakfast: skips Lunch: 12pm (fast food) Dinner: 5-6pm (chicken, vegetables, rice) Snacks: 10am (crackers), 3pm (crackers) Exercise: Has treadmill and stationary bike Fluids: Coffee: none, hot tea: 1 cup x2/wk, soda: none, juice: zero sugar, ETOH: 1/month PFSH Medical History (Updated 06/08/24 @ 08:31 by Isaac Coker MD) Hypertension BMI 35.0-35.9,adult ESA (generalized anxiety disorder) Migraines Mild major depression, single episode Depression Obesity (BMI 30-39.9) Migraine without aura, not intractable Iron deficiency anemia Sickle cell trait Surgical History Hx of tonsillectomy Family History Father Hypertension Mother Migraines Hypertension Brother No problems noted. Social History Housing: House Alcohol intake: current Alcohol intake frequency: holidays/special occasions only Patient Tobacco Use Status: Never used Tobacco e-Cigarette/Vaping Use: Never Used Second Hand Smoke Exposure: No service: No Current occupational status: employed Current occupational exposures/hazards: No Cognitive needs: No Hearing needs: No Vision needs: No Quality Reporting (2019) Adult ([facility] ) Smoking risk assessment performed?: Yes Patient Tobacco Use Status: Never used Tobacco Telehealth Telehealth Telehealth Platform: Telephone Location of provider rendering services: practice address Location of patient: address on file Patient Identification confirmed using: Name, : Yes Telehealth method: voice only Patient verbally consented to treatment: Yes Patient verbally consented to billing insurance company: Yes Patient informed of any privacy concerns related to visit: Yes Minutes spent on Phone/Video with Pt.: 36 Assessment & Plan Assessment & Plan (1) Obesity (BMI 30-39.9): Code(s): E66.9 - Obesity, unspecified Category: Medical Plan: 1.? Plan for lap sleeve gastrectomy. If diaphragmatic or ventral hernias are present at time of surgery, these will be repaired laparoscopically as well. I emphasized the importance of close follow-up, adherence to instructions and good communication. The surgery does not replace the need to change your lifestlyle which is the cause of the obesity problem. The surgery provides the motivation to try again to change your lifestyle, it reduces the appetite and make the transition to a better lifestyle easier and doubles the amount of weight you would lose compared to doing the lifestyle change without the surgery. You will need to be on a liquid diet with protein shakes for 2 weeks before surgery to maximize weight loss and boost your nutritional status to recover better from surgery and also for the first two weeks after surgery to let the stomach heal before we introduce other foods. After the first 2 weeks we will introduce protein bars and soft foods like scrambled eggs, cottage cheese and yogurt and after the 6th week will introduce meat, fish and cooked vegetables in small amounts. Over time you should be able to eat everything in small amounts. Side effects like nausea, vomiting, heartburn or abdominal pain are not common in the practice unless you are not following in the practice. This operation requires lifetime commitment to following in our practice and communication with me. You will much less weight and experience side effects if you don?t communicate or not following in the practice. Complications are rare and in our practice is about 1/10 of the national average. However, you can develop bleeding that may require transfusion (hasn?t happened for year in the practice), you may from complications (we did not have any deaths in the practice) and infections. Infections are usually a result of breakdown in communication or not understanding or following directions correctly. They are difficult to treat, they can happen during the first 6 weeks, they may require to be in the hospital for weeks or even months, not being able to eat by mouth and you may have drains and surgeries to try and correct the issue. Other risks and complications include possible conversion to an open procedure, leaks, small bowel obstruction, blood clots, cardiac, or pulmonary complications, as tank terminal gauger complications such as ulcers, insufficient weight loss and vitamin deficiencies. 2. You will receive a link of our software [email or web address] to generate an individualized nutritional and exercise plan specific for you. Please send me a screenshot of the plans you will generate Meal to include lean meat (beef, fish, pork, turkey, chicken), or nepali yogurt, or egg whites, or beans with a salad with olive oil and fruits (berries, pears, apples, kiwi). Avoid salt, breads, potatoes, rice, pasta, desserts. ?3. If you choose shakes, each shake would be drunk slowly, like coffee in a period of 2 hours. ?4. If you choose bars, cut each bar in 4 pieces and eat each piece in 30min ?to make each bar last 2 hours. ?5. I emphasized the importance of measuring accurately the food portion and measure it when serving the food in plate ?6. The meal portions include a specific number of forks of meat and salad. You always eat the meat portion but you can replace up to half of salad/vegetables portion with rice, potatoes or pasta, or a fruit ?if you like. The less you do it the better weight loss will be. ?7. One full-size fork is what it can be scooped on the fork without falling aside and not what can be bit with the fork. Use regular forks like those you find in a typical restaurant. ?8.? Please buy the body composition scale we discussed and send me weight measurements as soon as possible and then once a week. Always include your diet and exercise plan. ?9.?It is important of avoiding and for at least 18 months postoperatively and has been discussed at the infosession. ?10. Goal is to lose at least 1.5-2lbs per week ?11. Goal to lose 10% of your weight before surgery, which is about 22lbs. Ultimate weight goal: 196lbs before surgery 12. Please follow the diet plan exactly without any change. If you don't like something about the plan or you feel hungry you need to communicate with me so I can help you revise the plan. You should not change the plan yourself. 13. To be scheduled for EGD due to the history of sleeve gastrectomy and anemia. The possibility of biopsies was discussed. Patient needs to avoid use of NSAIDs and aspirin for 1 week prior to EGD. You must be on liquids only the day before your endoscopy. Risks of perforation and bleeding was discussed with the patient. This will be an outpatient procedure with IV sedation. Orders: Orders Insulin Today E66.9 - Obesity, unspecified, I10 - Essential (primary) hypertension, K21.9 - Gastro-esophageal reflux disease without esophagitis, Z68.35 - Body mass index [BMI] 35.0-35.9, adult Hemoglobin A1c Today E66.9 - Obesity, unspecified, I10 - Essential (primary) hypertension, K21.9 - Gastro-esophageal reflux disease without esophagitis, Z68.35 - Body mass index [BMI] 35.0-35.9, adult H Pylori Breath Test Today E66.9 - Obesity, unspecified, I10 - Essential (primary) hypertension, K21.9 - Gastro-esophageal reflux disease without esophagitis, Z68.35 - Body mass index [BMI] 35.0-35.9, adult IRON PROFILE Today E66.9 - Obesity, unspecified, I10 - Essential (primary) hypertension, K21.9 - Gastro-esophageal reflux disease without esophagitis, Z6 8.35 - Body mass index [BMI] 35.0-35.9, adult Vitamin B12 and Folate Today E66.9 - Obesity, unspecified, I10 - Essential (primary) hypertension, K21.9 - Gastro-esophageal reflux disease without esophagitis, Z68.35 - Body mass index [BMI] 35.0-35.9, adult Zinc Today E66.9 - Obesity, unspecified, I10 - Essential (primary) hypertension, K21.9 - Gastro-esophageal reflux disease without esophagitis, Z68.35 - Body mass index [BMI] 35.0-35.9, adult C Reactive Protein Today E66.9 - Obesity, unspecified, I10 - Essential (p rimary) hypertension, K21.9 - Gastro-esophageal reflux disease without esophagitis, Z68.35 - Body mass index [BMI] 35.0-35.9, adult Vitamin B1 Today E66.9 - Obesity, unspecified, I10 - Essential (primary) hypertension, K21.9 - Gastro-esophageal reflux disease without esophagitis, Z68.35 - Body mass index [BMI] 35.0-35.9, adult Vitamin D 25-OH Total Today E66.9 - Obesity, unspecified, I10 - Essential (primary) hypertension, K21.9 - Gastro-esophageal reflux disease without esophagitis, Z68.35 - Body mass index [BMI] 35.0-35.9, adult ECG 12 lead EKG Today E66.9 - Obesity, unspecified, I10 - Essential (primary) hypertension, K21.9 - Gastro-esophageal reflux disease without esophagitis, Z68.35 - Body mass index [BMI] 35.0-35.9, adult Complete Blood Count Auto Diff Today E66.9 - Obesity, unspecified, I10 - Essential (primary) hypertension, K21.9 - Gastro-esophageal reflux disease witho ut esophagitis, Z68.35 - Body mass index [BMI] 35.0-35.9, adult Lipid Panel Today E66.9 - Obesity, unspecified, I10 - Essential (primary) hypertension, K21.9 - Gastro-esophageal reflux disease without esophagitis, Z68.35 - Body mass index [BMI] 35.0-35.9, adult Comprehensive Met. Panel Today E66.9 - Obesity, unspecified, I10 - Essential (primary) hypertension, K21.9 - Gastro-esophageal reflux disease without esophagitis, Z68.35 - Body mass index [BMI] 35.0-35.9, adult Vitamin A Today E66.9 - Obesity, unspecified, I10 - Essential (primary) hypertension, K21.9 - Gastro-esophageal reflux disease without esophagitis, Z68.35 - Body mass index [BMI] 35.0-35.9, adult TSH reflex Free T4 Today E66.9 - Obesity, unspecified, I10 - Essential (primary) hypertension, K21.9 - Gastro-esophageal reflux disease without esophagitis, Z68.35 - Body mass index [BMI] 35.0-35.9, adult Ferritin Today E66.9 - Obesity, unspecified, I10 - Essential (primary) hypertension, K21.9 - Gastro-esophageal reflux disease without esophagitis, Z68.35 - Body mass index [BMI] 35.0-35.9, adult US abdomen comp w elastography Today E66.9 - Obesity, unspecified, I10 - Essential (primary) hypertension, K21.9 - Gastro-esophageal reflux disease without esophagitis, Z68.35 - Body mass index [BMI] 35.0-35.9, adult XR chest 2V Today E66.9 - Obesity, unspecified, I10 - Essential (primary) hypertension, K21.9 - Gastro-esophageal reflux disease without esophagitis, Z68.35 - Body mass index [BMI] 35.0-35.9, adult FL upper GI w air Today E66.9 - Obesity, unspecified, I10 - Essential (primary) hypertension, K21.9 - Gastro-esophageal reflux disease without esophagitis, Z68.35 - Body mass index [BMI] 35.0-35.9, adult Referrals Behavioral Health Referral E66.9 - Obesity, unspecified, I10 - Essential (primary) hypertension, K21.9 - Gastro-esophageal reflux disease without esophagitis, Z68.35 - Body mass index [BMI] 35.0-35.9, adult Nutrition/Dietitian Referral E66.9 - Obesity, unspecified, I10 - Essential (primary) hypertension, K21.9 - Gastro-esophageal reflux disease without esophagitis, Z68.35 - Body mass index [BMI] 35.0-35.9, adult
[2024-06-08 08:25] VITALS: BMI 35.2
== END 2024-06-08 08:46 | disposition home or self-care (01) ==
LOC: HO.HBS 07:53
PROVIDERS: PCP Internal Medicine; Visit Provider Surgery
DX: E66.812 Obesity, class 2 (principal); Z68.35 Body mass index [BMI] 35.0-35.9, adult
CPT/HCPCS: 98009

== ENCOUNTER → 2024-06-08 07:53 | Outpatient (BNVA) | payer OTHER, SELFPAY | PROVIDERS: PCP Internal Medicine; Visit Provider Surgery ==

== ENCOUNTER 2024-06-09 08:19 | Outpatient (REF) | payer OTHER, SELFPAY ==
--- NOTE | ~2024-06-09 | XR_ITS ---
CLINICAL HISTORY: E66.9 - Obesity, unspecified 2 view chest x-ray. Comparison: CR/SR - XR CHEST 1V - 09/29/22 20:38 EDT Findings: Normal lung volumes. Lungs are clear. No pneumothorax or pleural effusion. Heart size normal. No passive venous congestion. No midline shift or tracheal deviation. No acute fracture. Impression: 1. No acute cardiopulmonary disease. This document has been electronically signed by: Mendez Mcgowan MD on 06/09/2024 11:53:08
--- NOTE | 2024-06-09 08:24 | ECG_ITS ---
Test Reason : E66.9 OBS Blood Pressure : */* mmHG Vent. Rate : 79 BPM Atrial Rate : 79 BPM P-R Int : 160 ms QRS Dur : 68 ms QT Int : 364 ms P-R-T Axes : 52 10 17 degrees QTcB Int : 417 ms Normal sinus rhythm with sinus arrhythmia Normal ECG No previous ECGs available Referred By: Isaac Coker Electronically Signed By: REBA HERNANDEZ
[2024-06-09 08:48] LABS: MANUAL DIFF FLAG NO
[2024-06-09 09:07] LABS: Basophils Absolute Auto 0.1 X10*3/uL (0.0-0.2); Basophils Percent Auto 0.9 % (0-2); Eosinophils Absolute Auto 0.2 X10*3/uL (0.0-0.4); Eosinophils Percent Auto 2.4 % (0-4); Hematocrit 37.4 % (37.0-47.0); Hemoglobin 12.5 g/dl (12.0-16.0); Imm Gran Abs Auto 0.02 X10*3/uL (0.00-0.03); Imm Gran Pct Auto 0.3 % (0.0-0.4); Lymphocytes Absolute Auto 1.9 X10*3/uL (1.2-4.9); Lymphocytes Percent Auto 30.3 % (20-40); Mean Corpuscular HGB Conc 33.4 g/dl (31.0-35.0); Mean Corpuscular Hemoglobin 25.9 pg (27.0-33.0); Mean Corpuscular Volume 77.4 fL (80.0-98.0); Mean Platelet Volume 10.7 fL (9.4-12.3); Monocytes Absolute Auto 0.5 X10*3/uL (0.1-1.2); Monocytes Percent Auto 7.4 % (2-11); Neutrophils Absolute Auto 3.7 x10*3/uL (2.0-8.3); Neutrophils Percent Auto 58.7 % (45-73); Platelet Count 301 X10*3/uL (160-400); Red Blood Count 4.83 X10*6/uL (4.20-5.50); Red Cell Distribution Width 12.5 % (11.0-16.0); White Blood Count 6.3 X10*3/uL (4.8-10.8)
[2024-06-09 09:16] LABS: Estimated Average Glucose 94 mg/dL; Hemoglobin A1C 98.0029 umol/L; Hemoglobin A1c % 4.9 % (<6.0)
[2024-06-09 09:50] LABS: Alanine Aminotransferase 15 U/L (0-31); Albumin Level 4.1 g/dL (3.5-5.0); Anion Gap 10 (12-20); Aspartate Amino Transferase 17 U/L (5-31); Bilirubin Total 0.5 mg/dL (0.0-1.0); Blood Urea Nitrogen 16 mg/dL (9-16); C Reactive Protein 0.17 mg/dL (< or = 0.50); Calcium 9.3 mg/dL (8.4-10.2); Carbon Dioxide 24 mmol/L (22-29); Chloride 109 mmol/L (96-108); Cholesterol 185 mg/dL (<200); Estimated Glomerular Filt Rate > 60; Glucose Random 83 mg/dL (60-115); HDL Cholesterol 45 mg/dL (>40); Iron 93 mcg/dL (30-160); LDL Cholesterol Calculated 128 mg/dL (<100); Percent Iron Saturation 31 % (15-50); Potassium 4.1 mmol/L (3.3-5.1); Sodium 139 mmol/L (135-145); Total Iron Binding Capacity 299 mcg/dL (228-428); Total Protein 7.4 g/dL (6.5-8.0); Triglycerides 62 mg/dL (<150); Unsaturated Iron Binding 206 ug/dL
[2024-06-09 10:03] LABS: Folate 12.3 ng/mL (> or = 4.0); Vitamin B12 456 pg/mL (200-900)
[2024-06-09 10:04] LABS: Ferritin 51 ng/mL (10-122); TSH reflex Free T4 1.49 uIU/mL (0.32-4.0); Vitamin D 25-OH Total 13.3 ng/mL (>30)
[2024-06-09 10:23] LABS: Alkaline Phosphatase 69 U/L (39-117)
[2024-06-09 10:27] LABS: Insulin 15 uU/mL (2-29)
[2024-06-12 00:48] LABS: Zinc 66 mcg/dL (60-130)
[2024-06-12 19:09] LABS: Vitamin A 54 mcg/dL (38-98)
[2024-06-16 15:09] LABS: Vitamin B1 12 nmol/L (8-30)
== END 2024-06-09 08:20 | disposition home or self-care (01) ==
LOC: HO.XRAY 08:19
PROVIDERS: PCP Internal Medicine; Visit Provider Surgery
DX: E66.9 Obesity, unspecified (principal); Z68.35 Body mass index [BMI] 35.0-35.9, adult; K21.9 Gastro-esophageal reflux disease without esophagitis; I10 Essential (primary) hypertension; Z13.1 Encounter for screening for diabetes mellitus
CPT/HCPCS: 36415; 71046; 80053; 80061; 82306; 82607; 82728; 82746; 83036; 83525; 83540; 84425; 84443; 84590; 84630; 85025; 86140; 93005

== ENCOUNTER → 2024-06-09 08:24 | Outpatient (BNV) | payer OTHER, SELFPAY | PROVIDERS: PCP Internal Medicine; Visit Provider Internal Medicine | DX: E66.01 Morbid (severe) obesity due to excess calories (principal) | CPT/HCPCS: 93010 ==

== ENCOUNTER → 2024-06-09 08:52 | Outpatient (BNV) | payer OTHER, SELFPAY | PROVIDERS: PCP Internal Medicine; Visit Provider Radiology Diagnostic Radiology | DX: E66.01 Morbid (severe) obesity due to excess calories (principal) | CPT/HCPCS: 71046 ==

== ENCOUNTER 2024-06-24 10:43 | Day surgery (SDC) | payer OTHER, SELFPAY ==
[2024-06-22 12:01] VITALS: BMI 35.2
--- NOTE | 2024-06-23 09:46 | HO.ANESPROP2 ---
Documented by User: Vane Jara NP 06/23/24 09:46 HPI - Anesthesia Eval Consult details Narrative: 29yo F for Upper Endoscopy PMFSH Active Problems Active Problems: All Active Problems Vitamin B12 deficiency (Acute) Vitamin D deficiency (Acute) Hypertension (Acute) BMI 35.0-35.9,adult (Acute) COVID (Acute) Migraine without aura (Acute) Upper respiratory infection (Acute) Excessive daytime sleepiness (Acute) Snoring (Acute) Abdominal pain (Acute) Skin lesions (Acute) Photophobia (Acute) Sleep difficulties (Acute) Migraine without aura, not intractable (Acute) Low vitamin D level (Acute) Diarrhea (Acute) Adult general medical exam (Acute) Acute gastroenteritis (Acute) Tinea corporis (Acute) ESA (generalized anxiety disorder) (Acute) Sickle cell trait (Acute) Migraines (Acute) Mild major depression, single episode (Acute) Allergic rhinitis (Acute) Depression (Acute) GERD (gastroesophageal reflux disease) (Acute) BMI 33.0-33.9,adult (Acute) Obesity (BMI 30-39.9) (Acute) Past Medical History Medical History Hypertension BMI 35.0-35.9,adult ESA (generalized anxiety disorder) Migraines Mild major depression, single episode Depression Obesity (BMI 30-39.9) Migraine without aura, not intractable Iron deficiency anemia Sickle cell trait Family History Family History Father Hypertension Mother Migraines Hypertension Brother No problems noted. Surgical History Surgical History Hx of tonsillectomy Social History Social History Housing: House Alcohol intake: current Alcohol intake frequency: holidays/special occasions only Patient Tobacco Use Status: Never used Tobacco e-Cigarette/Vaping Use: Never Used Second Hand Smoke Exposure: No Use of substances other than those prescribed or required for medical reasons: No Are you DNR?: No Advance Directives: No Advance Directives Information Provided: Yes Recently lost weight without trying: No Nutrition Risks: No Nutritional Risk service: No Current occupational status: employed Current occupational exposures/hazards: No Cognitive needs: No Hearing needs: No Vision needs: No Meds Allergies Allergy/AdvReac Type Severity Reaction Status Date / Time No Known Allergies Allergy Verified 06/08/24 08:17 [No Known Allergies*] Home Medications ?Medication ?Instructions ?Recorded ?Confirmed ?Last Taken ?Type famotidine 20 mg tablet (Pepcid) 20 mg PO BEDTIME 06/08/24 06/08/24 Unknown History Exam Height,Weight and Vital Signs: Height 5 ft 6 in Weight 98.883 kg Assessment and Plan Assessment Anesthesia Assessment: Chart Reviewed Documented by User: Lucia Puente MD 06/24/24 12:57 PMFSH Past Medical History Medical History Hypertension BMI 35.0-35.9,adult ESA (generalized anxiety disorder) Migraines Mild major depression, single episode Depression Obesity (BMI 30-39.9) Migraine without aura, not intractable Iron deficiency anemia Sickle cell trait Family History Family History Father Hypertension Mother Migraines Hypertension Brother No problems noted. Surgical History Surgical History Hx of tonsillectomy History of Problems with Anesthesia: No Social History Social History Housing: House Alcohol intake: current Alcohol intake frequency: holidays/special occasions only Patient Tobacco Use Status: Never used Tobacco e-Cigarette/Vaping Use: Never Used Second Hand Smoke Exposure: No Use of substances other than those prescribed or required for medical reasons: No Are you DNR?: No Advance Directives: No Advance Directives Information Provided: Yes Recently lost weight without trying: No Nutrition Risks: No Nutritional Risk service: No Current occupational status: employed Current occupational exposures/hazards: No Cognitive needs: No Hearing needs: No Vision needs: No Meds Allergies Allergy/AdvReac Type Severity Reaction Status Date / Time No Known Allergies Allergy Verified 06/08/24 08:17 [No Known Allergies*] Home Medications ?Medication ?Instructions ?Recorded ?Confirmed ?Last Taken ?Type famotidine 20 mg tablet (Pepcid) 20 mg PO BEDTIME 06/08/24 06/08/24 Unknown History Exam Airway Mallampati Class: II TM Dist: >3cm Neck ROM: Full Loose/Missing/Broken Teeth: No Heart: RRR Lungs: CTA Assessment and Plan Assessment Anesthesia Assessment: Anesthesia Plan Discussed Final Anesthetic Review History of Problems with Anesthesia: No NPO: Yes ASA Class: II Final Preanesthetic Review: Meds/Allgs Chart Reviewed, Consent Obtained/Reviewed and Anes Risks/Benef Reviewed Patient Risk: Low Procedure Risk: Intermediate Anesthetic Plan Anesthetic Plan: MAC: Disposition: Standard PACU
[2024-06-24 11:52] VITALS: BMI 32.3
[2024-06-24 11:59] LABS: UPreg QC Valid YES; Urine Pregnancy NEGATIVE (NEGATIVE)
[2024-06-24 12:02] VITALS: BP 133/88; PULSE 92; RESP 16; TEMP 36.6; O2SAT 95
[2024-06-24] MEDS: Lactated Ringers 1,000 ML 80 ML IVCONT (12:27)
--- NOTE | 2024-06-24 13:01 | MHC.SHP ---
Pre-Procedural Eval Section A - 24 Hr Update-Section A only Date of Service: 06/24/24 The patient is an INPATIENT: No The patient has been examined within 24 hours of the surgical procedure. The History & Physical has been completed within 30 days and I have reviewed it.: Yes Section B - Complete if H&P > 30 days Chief Complaint: Morbid (severe) obesity due to excess calories Details of Present Illness: GERD Relevant Family History (Specify if Yes): No Relevant Social History: None Present Medications: None Medical History: No relevant PMH History of Previous Operations: No relevant previous surgery Allergies: Allergies Allergy/AdvReac Type Severity Reaction Status Date / Time No Known Allergies Allergy Verified 06/08/24 08:17 [No Known Allergies*] Review of Systems Sugical H&P ROS: Negative: Constitution, Cardiovascular, Respiratory, Neurological, Psychiatric, Hem-Onc, Allergic/Immunologic, Gastrointestinal, Genitourinary, Musculoskeletal, Integumentary, Endocrine and Eyes/Ears/Nose/Throat Exam Surgical H&P Exam: Normal: HEENT, Normal: Heart, Normal: Lungs, Normal: Extremities, Normal: Abdomen, Normal: Skin and Normal: Neurological Plan Diagnosis/Plan: Unchanged (EGD to assess etiology of GERD. Risks of bleeding and perforation were discussed with the patient and she is in agreement with the plan.) I have reviewed the history and physical and performed a pertinent physical examination on my patient. No changes have occurred unless specified. Time Spent With Patient Time: Total time managing care of this patient today ____ minutes.
[2024-06-24 13:25] VITALS: BP 99/53; PULSE 114; RESP 18; TEMP 36.4; O2SAT 95
--- NOTE | 2024-06-24 13:31 | PM.OP ---
Brief Operative Note Date of Service: 06/24/24 Pre-op diagnosis: GERD Post-op diagnosis: same (Normal endoscopy) Procedure: PROCEDURE DATE: 06/24/2024 PREOPERATIVE DIAGNOSIS: GERD POSTOPERATIVE DIAGNOSIS: ?Same as above.Normal endoscopy PROCEDURE: [id number] with biopsies Surgeon: Aneudy Coker M.D.. Ph.D. Silk Finisher: None ? Anesthesia: IV sedation Estimated blood loss: ?Minimal FINDINGS AND PROCEDURE: ? OPERATIVE INDICATIONS: ?The patient is a 29 year old female known to me who is interested in bariatric surgery. The patient has GERD. Based on this information I recommended an upper endoscopy to evaluate the patient's symptoms. Risks and complications of the surgery were discussed with the patient in advance particularly the possibility of perforation or bleeding that may require surgical intervention. The patient understood the risks and was in agreement with the plan. ? PROCEDURE: After informed consent was obtained by the patient, the patient was ?transferred to the Operating Room and was placed in the supine position.? After successful induction of IV sedation, a mouth block was inserted and the patient was placed in the left lateral decubitus position. An upper endoscopy was performed next, the oropharynx and esophagus appeared within the normal limits. There was no hiatal hernia. The z-line was smooth. Two biopsies were obtained from the distal esophagus 2-3 cm proximal to the GE junction and two additional biopsies from the GE junction. The stomach was entered and it appeared to be of normal size. There was mild gastritis at distal antrum. There was no stricture or ulcer. A biopsy was obtained from the distal antrum. No significant bleeding was noted from any of the biopsy sites. The scope was then advanced into the duodenum which appeared to be normal as well. At that point the duodenum ?and the stomach were decompressed and the scope was withdrawn from the patient's mouth. The patient extubated and was transferred in stable condition to the Recovery Room for further care. I was present and performed all steps of the procedure. There were no residents to assist with this case. Adolfo Coker M.D., Ph.D. Surgeon: Isaac Coker MD Anesthesia: MAC Was an Silk Finisher used for this Procedure?: No Estimated blood loss (mL): 0 IV fluids (mL): 400 Urine output (mL): 0 (No Kumar to record output) Pathology: other (1) antrum x1, 2) fundus x1, 3) GE junction x2, 4) distal esophagus x2) Condition: stable Disposition: PACU
[2024-06-24 13:40] VITALS: BP 106/65; PULSE 79; RESP 18; O2SAT 95
[2024-06-24 13:55] VITALS: BP 109/73; PULSE 94; RESP 20; TEMP 36.4; O2SAT 98
== END 2024-06-24 14:24 | disposition home or self-care (01) ==
PROVIDERS: Nurse Practitioner; PCP Internal Medicine; Visit Provider Surgery
PROC: 0DJ08ZZ Inspection of Upper Intestinal Tract, Via Natural or Artificial Opening Endoscopic (ICD-10-PCS; CPT 43235; principal; 2024-06-24 14:20)
DX: K21.9 Gastro-esophageal reflux disease without esophagitis (principal); E66.01 Morbid (severe) obesity due to excess calories; Z68.35 Body mass index [BMI] 35.0-35.9, adult; K29.60 Other gastritis without bleeding; I10 Essential (primary) hypertension; D50.9 Iron deficiency anemia, unspecified; D57.3 Sickle-cell trait; G43.009 Migraine without aura, not intractable, without status migrainosus; F32.9 Major depressive disorder, single episode, unspecified; F41.1 Generalized anxiety disorder; Z79.899 Other long term (current) drug therapy; Z79.1 Long term (current) use of non-steroidal anti-inflammatories (NSAID)
CPT/HCPCS: 43239; 81025; 88305; 88313; 88342; J2003; J2250; J2704

== ENCOUNTER → 2024-06-24 10:43 | Outpatient (BNV) | payer OTHER, SELFPAY | PROVIDERS: PCP Internal Medicine; Visit Provider Surgery | DX: K21.9 Gastro-esophageal reflux disease without esophagitis (principal) | CPT/HCPCS: 43239 ==

== ENCOUNTER → 2024-07-07 12:12 | Outpatient (AMB) | payer OTHER, SELFPAY ==
--- NOTE | 2024-07-07 12:00 | A.OFFWM_ITS ---
Intake Intake Visit Reasons: VIDEO Intake Part 2 Allergies No Known Allergies [No Known Allergies*] Allergy (Verified 06/08/24 08:17) [facility] Medical History Hypertension BMI 35.0-35.9,adult ESA (generalized anxiety disorder) Migraines Mild major depression, single episode Depression Obesity (BMI 30-39.9) Migraine without aura, not intractable Iron deficiency anemia Sickle cell trait Surgical History Hx of tonsillectomy Family History Father Hypertension Mother Migraines Hypertension Brother No problems noted. Social History Housing: House Alcohol intake: current Alcohol intake frequency: holidays/special occasions only Patient Tobacco Use Status: Never used Tobacco e-Cigarette/Vaping Use: Never Used Second Hand Smoke Exposure: No service: No Current occupational status: employed Current occupational exposures/hazards: No Cognitive needs: No Hearing needs: No Vision needs: No Behavioral Health Assessment Weight Management Therapy Therapy Notes Details The patient is a 29-year-old female presenting for a second visit to complete a behavioral health assessment as part of the surgical weight loss p humberto. The patient reports attending counseling for a brief period in the past, but the issues were resolved, and she has not been in treatment since. She denies any history of mental health diagnosis, past hospitalizations, or crises related to behavioral health. Additionally, she denies any history or recent concerns regarding suicidal ideation (SI), suicidal attempts (SA), self-harm, or harm to others. There is no reported history of substance use. Furthermore, there is no evidence of stress-related or emotional eating, and her scores on the BES indicate a low risk for binge eating behaviors. The PHQ scores also show no active symptoms or concerns related to depression. The mental status exam is within normal limits, suggesting that the patient's functioning is not impaired. The patient currently weighs 196 pounds and has achieved her initial weight loss goal prior to bariatric surgery. From a behavioral health standpoint, she is cleared to proceed with the surgical weight loss program. Presenting Concerns Referral Source WMp-Provider. PT meet with Dr. Gan for first time Reason for referral Completion of behavioral health assessment as part of process for weight-loss surgery. Precipitating Event Obesity. Living Situation Current Living Situation Own At risk of losing current housing? No Satisfied with current living situation? Yes Comments PT lives with her partner and the 3 dogs. Food/Weight/Diet Expectations of change PT started the program in May 2023 at 218 lbs. The initial goal is to lose 10% of your weight before surgery, which is about 22 lbs. The ultimate weight goal is 196 Lbs before surgery. The patient wants to be healthier and improve physical functioning. PT is implementing the following: Current meal plan: using [employer] website, has a combination of bars, shakes and 1 meal. Exercise plan: walking. History/Relationship with food PT reports she has a healthy relationship with food. Denies using food as a reward or to uplift her mood. Example of meals before starting the program: Breakfast: Skip. when at home potatoes with eggs or a sandwich. AM snack: cookies or fruit. Mainly when skipping breakfast. Lunch: Leftovers. Rice with meat or pasta. PM snack: none Dinner: homemade, plantains with salami or any type of meat; rice/beans/pork/salad. Night Snacks: fruit. Drinks/Liquids: coffee, water, 2-3 cans of soda. History/Relationship with weight PT reports she was always chunky but not obese in childhood, around adolescence, she started developing hormonal issues and started gaining substantial weight. In adulthood she was around 180 lbs most of the time, she has been around current weight for the past 6-7 years. In the last 10 years, the patient's Lowest weight was 190Lbs and highest 220Lbs History/Relationship with dieting Self-diets with exercise. 2019- Phentermine was prescribed by her PCP, but she had to stop it due to increased heart rate. Binge Eating Do you frequently eat large amounts of food in short periods of time, not feeling physically hungry? No Do you feel out of control when you eat a large amount of food in a short period of time? No Do you eat large amounts of food rapidly and typically alone? No Night Eating Do you wake up at least once during the night to eat? No If you wake up in the night, do you find that it is necessary to eat something in order to fall back asleep? No Do you have little or no appetite in the morning and feel very hungry in the evening, often overeating between dinner and when you go to bed? No Social History Family history and relationship PT has been with a partner about 10 years ago, they are engaged. No children. Parents are alive, mother lives in [place], and father in . She has 1 sibling from her mother adn father, she has more on her father's side but they are not close, 7 siblings in total. Most of her family are in . Parental/Familial respite worker obligations None Developmental history and status None reported. Currently WNL. Social support for weight-loss journey, her Partner, mother, father and brother. In general her partner and her mother. Community support PCP Methodist/Spirituality None. Cultural/Ethnic information PT was born and raised in [place] 13. Bi-lingual. Legal Involvement and History Current or historical involvement with the legal system? None Education Highest grade completed HS diploma. 2 years of college. 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 Preferred learning style Auditory and Visual Currently enrolled in educational program? No Interested in further educational program? 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 Would like to do something in management, not healthcare. 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 None Service Service? No Mental Health and Addiction Treatment Current/Past substance abuse? No Comments Alcohol: social. 1-2 drinks. Less than once at month. Cigarettes/Tobacco: None Cannabis/Edibles: None Current/Past addictive behavior concerns? No Psychiatric history She attended counseling in the past for couple months as was mandated by her employer after a traumatic event happened in the building. Currently not in any type of MH tx. PT denies ever been in crisis or inpatient for mental health. There is no history and/or current concern about SI/SA and self-harm or other harm. Medical and Physical Health Summary Additional Medical History not covered in history None aditional. Sexual History concerns None reported. Physical exam in the last year? No (upcoming on 08/2024. Last one was for 04/2024 and was rescheduled by provider. ) Pain Screening Current pain? No Pain in the last few months? Yes (Due to migraines. Couple times at month. ) Medications Is the patient compliant with medications? Yes Does the patient have Davis Guardian in place? Not applicable Does the patient use complimentary health approaches? No Trauma/Abuse History History of trauma? No Questionnaires PHQ-9 Over the last 2 weeks, how often have you been bothered by any of the following problems? 1. Little interest or pleasure in doing things: not at all 2. Feeling down, depressed, or hopeless: not at all 3. Trouble falling or staying asleep, or sleeping too much: several days 4. Feeling tired or having little energy: not at all 5. Poor appetite or overeating: not at all 6. Feeling bad about yourself - or that you are a failure or have let yourself or your family down: not at all 7. Trouble concentrating on things, such as reading the newspaper or watching television: not at all 8. Moving or speaking so slowly that other people could have noticed. Or the opposite - being so fidgety or restless that you have been moving around a lot more than usual: not at all 9. Thoughts that you would be better off or of hurting yourself in some way: not at all Total score: 1 Depression Screening Interpretation: Negative Depression Screening Done: Yes 56524 - PHQ-9 Billing: Yes Source: Developed by Drs. Rd Garnett, Anna Armstrong, Jhonny Galan and colleagues, with an educational erin from [employer]. Binge Eating Scale Group 1 A. I don't feel self-conscious about my wt. or body size when I'm with others. B. I feel concerned about how I look to others, but it normally does not make me fell disappointed with myself C. I do get self-conscious about my appearance and wt. which makes me feel disappointed in myself. D. I feel very self-conscious about my wt. and frequently I feel intense shame and disgust for myself. I try to avoid social contacts because of my self- consciousness. Response Group 1: C Group 2 A. I don't have any difficulty eating slowly in the proper manner. B. Although I seem to gobble down foods, I don't end up feeling stuffed because of eating to much. C. At times, I tend to eat quickly and then, I feel uncomfortably full afterwards. D. I have the habit of bolting down my food, without really chewing it. When this happens I usually feel uncomfortably stuffed because I've eaten to much. Response Group 2: C Group 3 A. I feel capable to control my eating urges when I want to. B. I feel like I have failed to control my eating more than the average person. C. I feel utterly helpless when it comes to feeling in control of my eating urges. D. Because I feel so helpless about controlling my eating I have become very desperate about trying to get control. Response Group 3: B Group 4 A. I don't have the habit of eating when I'm bored. B. I sometimes eat when I'm bored, but often I'm able to get busy and get my mind off food. C. I have a regular habit of eating when I'm bored, but occasionally, I can use some other activity to get my mind off eating. D. I have a strong habit of eating when I'm bored. Nothing seems to help me breath the habit. Response Group 4: B Group 5 A. I'm usually physically hungry when I eat something. B. Occasionally, I eat something on impulse even though I really am not hungry. C. I have the regular habit of eating foods, that I might not really enjoy, to satisfy a hungry feeling even though physically, I don't need the food. D. Although I'm not physically hungry, I get a hungry feeling in my mouth that only seems to be satisfied when I eat a food, like sandwich, that fills my mouth. Sometimes, when I eat the food to satisfy my mouth hunger, I then spit the food out so I won't gain weight. Response Group 5: B Group 6 A. I don't feel any guilt or self-hate after I overeat. B. After I overeat, occasionally I feel guilt or self-hate. C. Almost all the time I experience strong guilt or self-hate after I overeat. Response Group 6: B Group 7 A. I don't lose total control of my eating when dieting even after periods when I overeat. B. Sometimes when I eat a forbidden food on a diet, I feel like I blew it and eat even more. C. Frequently, I have the habit of saying to myself, I've blown it now, why not go all the way, when I overeat on a diet. When that happens I eat more. D. I have a regular habit of starting a strict diets for myself but I break the diets by going on an eating binge. My life seems to be either a feast or famine. Response Group 7: B Group 8 A. I rarely eat so much food that I feel uncomfortably stuffed afterwards. B. Usually about once a month, I each such a quantity of food, I end up feeling very stuffed. C. I have regular periods during the month when I eat large amounts of food, either at mealtime or at snacks. D. I eat so much food that I regularly feel quite uncomfortable after eating and sometimes a bit nauseous. Response Group 8: C Group 9 A. My level of calorie intake does not go up very high or go down very low on a regular basis. B. Sometimes after I overeat, I will try to reduce my caloric intake to almost nothing to compensate for the excess calories I've eaten. C. I have a regular habit of overeating during the night. It seems that my routine is not to be hungry in the morning but overeat in the evening. D. In my adult years, I have had week-long periods where I practically starve myself. This follows periods when I overeat. It seems I live a life of either f east or famine. Response Group 9: C Group 10 A. I usually am able to stop eating when I want to. I know when enough is enough. B. Every so often, I experience a compulsion to eat which I can't seem to control. C. Frequently, I experience strong urges to eat which I seem unable to control, but at other times I can control my eating urges. D. I feel incapable of controlling urges to eat. I have a fear of not being able to stop eating voluntarily. Response Group 10: C Group 11 A. I don't have any problem stopping eating when I feel full. B. I usually can stop eating when I feel full but occasionally overeat leaving me feeling uncomfortably stuffed. C. I have a problem stopping eating once I start and usually I feel uncom fortably stuffed after I eat a meal. D. Because I have a problem not being able to stop eating when I want, I sometimes have to induce vomiting to relieve my stuffed feeling. Response Group 11: A Group 12 A. I seem to eat just as much when I'm with others, Family social gatherings as when I'm by myself. B. Sometimes, when I'm with other persons, I don't eat as much as I want to eat because I'm self-conscious about my eating. C. Frequently, I eat only a small amount of food when others are present, because I'm very embarrassed about my eating. D. I feel so ashamed about overeating that I pick times to overeat when I know no one will see me. I feel like a closet eater. Response Group 12: B Group 13 A. I eat three meals a day with only an occasional between meal snack. B. I eat 3 meals a day, but I also normally snack between meals. C. When I am snacking heavily, I get in the habit of skipping regular meals. D. There are regular periods when I seem to be continually eating, with no planned meals. Response Group 13: A Group 14 A. I don't think much about trying to control unwanted eating urges. B. At least some of the time, I feel my thoughts are pre-occupied with trying to control my eating urges. C. I feel that frequently I spend much time thinking about how much I ate or about trying not to eat anymore. D. It seems to me that most of my waking hours are pre-occupied by thoughts about eating or not eating. I feel like I'm constantly struggling not to eat. Response Group 14: A Group 15 A. I don't think about food a great deal. B. I have strong craving for food but they last only for brief periods of time. C. I have days when I can't seem to think about anything else but food. D. Most of my days seem to be pre-occupied with thoughts about food. I feel like I live to eat. Response Group 15: B Group 16 A. I usually know whether or not I'm physically hungry. I take the right portion of food to satisfy me. B. Occasionally, I feel uncertain about knowing whether or not I'm physically hungry. A these times it's hard to know how much food I should take to satisfy me. C. Even though I might know how many calories I should eat, I don't have any idea what is a normal amount of food for me. Response Group 16: C Binge Eating Score: 19 Score less than 17 Minimal Risk Score between 18-26 Moderate Risk Score between 27-46 High Risk Assessment & Plan Assessment & Plan (1) Adjustment disorder, unspecified: Code(s): F43.20 - Adjustment disorder, unspecified (2) Problems related to inappropriate diet and eating habits: Code(s): Z72.4 - Inappropriate diet and eating habits Plan The patient has been cleared from a behavioral health standpoint. She will be seen post-operatively for ongoing support. Next appointment: 2 to 4 weeks post-operatively. Telehealth Telehealth Telehealth Platform: [facility] Location of provider rendering services: other Location of patient: other ([place], [place]) Patient Identification confirmed using: Name, : Yes Telehealth method: video Patient verbally consented to treatment: Yes Patient verbally consented to billing insurance company: Yes Patient informed of any privacy concerns related to visit: Yes Minutes spent on Phone/Video with Pt.: 60 Coding Level of Care Code Established Pt Tele Psytx >53 mins (91803) Patient Type Established Diagnoses Adjustment disorder, unspecified F43.20 Problems related to inappropriate diet and eating habits Z72.4 Additional Codes PHQ-9 - 12471 - PHQ-9 Billing: Yes ([id number]) Time Spent (min) 60
== END ==
LOC: HO.HBST 12:12
PROVIDERS: PCP Internal Medicine; Visit Provider Counselor Mental Health
DX: F43.20 Adjustment disorder, unspecified (principal); Z72.4 Inappropriate diet and eating habits
CPT/HCPCS: 90837

== ENCOUNTER 2024-07-10 07:52 | Outpatient (REF) | payer OTHER, SELFPAY ==
--- NOTE | ~2024-07-10 | US_ITS ---
EXAMINATION: US ABDOMEN COMPLETE WITH LIVER ELASTOGRAPHY HISTORY: E66.9 - Obesity, unspecified TECHNIQUE: Real-time grayscale ultrasound imaging of the abdomen was performed and images were reviewed. COMPARISON: There are no prior studies for comparison. FINDINGS: Liver: The right lobe of the liver measures 13.6 cm in size. The left lobe of the liver measures 10.4 cm in size. The liver demonstrates increased echotexture, consistent with steatosis. No focal mass or intrahepatic biliary ductal dilatation is identified. There is normal hepatopedal flow in the portal vein. Ultrasound elastography of the liver was performed with 10 separate measurements of the liver parenchyma with the patient in the supine position. Measurements were obtained approximately 2 cm below Ronnie's capsule and perpendicular to the capsule. Images are of satisfactory quality. The median shear wave velocity is 1.32 m/s. The interquartile range/median (IQR/median) is 0.21. Gallbladder and biliary tree: The gallbladder is unremarkable, without evidence of calculi, wall thickening, or pericholecystic fluid. There is no sonographic [place] sign. The common bile duct is normal in caliber measuring 2 mm. Kidneys: The right kidney measures 11.7 cm in length. The left kidney measures 11.2 cm in length. The kidneys are unremarkable, without evidence of masses, hydronephrosis, or calculi. Pancreas: The pancreatic head, neck, and body are unremarkable. The pancreatic tail is obscured by bowel gas. Spleen: The spleen is normal in size and contour, measuring 7.9 cm in length. Abdominal aorta and inferior vena cava: The visualized portions of the abdominal aorta and inferior vena cava are normal in caliber. There is no free fluid in the abdomen. US/US abdomen comp w elastography IMPRESSION: Hepatic steatosis. The median shear wave velocity is 1.32 m/s, corresponding to a median liver stiffness of 5.28 kPa. The IQR/median value is 0.21. This is indicative of a poor quality data set, and the estimated liver stiffness may be unreliable. Findings are indicative of a low elastography value which rules out advanced chronic liver disease in asymptomatic patients. REFERENCE: Society of Radiologists in Ultrasound Liver Stiffness Thresholds (2020): LIVER STIFFNESS THRESHOLDS: *Shear wave velocity less than 1.3 m/s (Liver Stiffness equal or less than 5 kPa): High probability of being normal. *Shear wave velocity less than 1.7 m/s (Liver Stiffness less than 9 kPa): In the absence of other known clinical signs, rules out compensated advanced chronic liver disease. *Shear wave velocity between 1.7-2.1 m/s (Liver Stiffness 9-13 kPa): Suggestive of compensated advanced chronic liver disease but need further test for confirmation. *Shear wave velocity between 2.1-2.4 m/s (Liver Stiffness 13-17 kPa): Rules in compensated advanced chronic liver disease. *Shear wave velocity greater than 2.4 m/s (Liver Stiffness over 17 kPa): Suggestive of clinically significant portal hypertension. QUALITY OF DATA SET: *IQR/Median value equal or less than 0.15 implies a quality data set. *IQR/Median value over 0.15 implies a poor quality data set. SIGNIFICANT CHANGE FROM PRIOR EXAM: Significant change if liver stiffness measurement is 10% or greater from prior exam. OTHER CONSIDERATIONS: The stage of liver fibrosis may be overestimated in the setting of acute hepatitis, liver inflammation, elevated liver function tests, hepatic vascular congestion, obstructive cholestasis, non-fasting state, and infiltrative diseases such as amyloidosis and lymphoma. In some patients with NAFLD, the liver stiffness thresholds for compensated advanced chronic liver disease may be lower. In causes other than viral hepatitis and NAFLD, liver stiffness thresholds are not well established. Electronically signed by: Rd Phillips MD 07/10/2024 08:48 AM [facility]
== END 2024-07-10 07:53 | disposition home or self-care (01) ==
LOC: HO.US 07:52
PROVIDERS: PCP Internal Medicine; Visit Provider Surgery
DX: E66.9 Obesity, unspecified (principal); Z68.35 Body mass index [BMI] 35.0-35.9, adult; K21.9 Gastro-esophageal reflux disease without esophagitis; I10 Essential (primary) hypertension
CPT/HCPCS: 76700; 76981

== ENCOUNTER → 2024-07-10 07:54 | Outpatient (BNV) | payer OTHER, SELFPAY | PROVIDERS: PCP Internal Medicine; Visit Provider Radiology Diagnostic Radiology | DX: K76.0 Fatty (change of) liver, not elsewhere classified (principal); E66.01 Morbid (severe) obesity due to excess calories | CPT/HCPCS: 76700 ==

== ENCOUNTER 2024-07-28 09:50 | Outpatient (REF) | payer OTHER, SELFPAY ==
--- NOTE | ~2024-07-28 | FL_ITS ---
EXAMINATION: XR FLUOROSCOPY UPPER GI WITH AIR CLINICAL INFORMATION: Obesity. For preop evaluation. COMPARISON: None available. TECHNIQUE: Routine upper GI air contrast study was performed in upright and lying position. FINDINGS: Following oral administration of thick barium and effervescent granules and upright view there is normal propagation bolus from the oral cavity through the pharynx, esophagus and the stomach without any evidence of obstruction, narrowing or stricture. On placing patient in supine and prone lying the course, caliber of the stomach, duodenal bulb and sweep is normal. The mucosal pattern of the stomach and duodenum is normal. FLUOROSCOPY TIME: 1.1 minutes DOSE AREA PRODUCT: 1051 uGy-m2 (microgray-meter squared) FL/FL upper GI w air IMPRESSION: Unremarkable upper GI air contrast study. Electronically signed by: Roman Galeano MD 07/28/2024 12:14 PM EDT
== END 2024-07-28 09:51 | disposition home or self-care (01) ==
LOC: HO.XRAY 09:50
PROVIDERS: PCP Internal Medicine; Visit Provider Surgery
DX: K21.9 Gastro-esophageal reflux disease without esophagitis (principal); E66.9 Obesity, unspecified; Z68.35 Body mass index [BMI] 35.0-35.9, adult; I10 Essential (primary) hypertension
CPT/HCPCS: 74246

== ENCOUNTER → 2024-07-28 09:51 | Outpatient (BNV) | payer OTHER, SELFPAY | PROVIDERS: PCP Internal Medicine; Visit Provider Radiology Diagnostic Radiology | DX: E66.9 Obesity, unspecified (principal) | CPT/HCPCS: 74246 ==

== ENCOUNTER 2024-07-31 08:05 | Outpatient (AMB) | payer OTHER, SELFPAY ==
--- NOTE | 2024-07-31 08:47 | A.OFFVIS_ITS ---
VS Expanded 07/31/24 08:59 Height 5 ft 6 in Weight 193 lb 1 oz BMI 31.2 Intake Visit Reasons: TV Pre Op LSG 08/18/24 Allergies No Known Allergies [No Known Allergies*] Allergy (Verified 07/31/24 08:47) Medication List - Last Reconciled 07/31/24 by Isaac Coker MD cetirizine (Allergy Relief (cetirizine)) 10 mg PO DAILY PRN 90 days cholecalciferol (vitamin D3) 125 mcg PO DAILY famotidine (Pepcid) 20 mg PO BEDTIME mecobalamin (vitamin B12) 1,000 mcg sublingual DAILY naproxen 500 mg PO Q8-12H PRN ondansetron 4 mg PO Q12H pantoprazole 40 mg PO DAILY polyethylene glycol 3350 17 grams PO DAILY sucralfate 10 mL PO BID sumatriptan succinate 50 - 100 mg orally at onset of headache, may repeat in 2 hrs PRN; max 2 tabs per day or 4 tabs/week (may take with Ibuprofen or Aleve) 30 days ubrogepant (Ubrelvy) 50 - 100 mg (0.5 - 1 x 100 mg) PO ONCE PRN 30 days HPI HPI TV Pre Op LSG 08/18/24: Details: Start time: 8.38am, End time: 9.08am ?I spent 25 minutes speaking with the patient on the phone plus an additional 5 minutes reviewing and updating records for a total of 30 minutes HPI Comments Details: Overall weight loss: 25lbs, or 11.46% TBWL Is doing 4 Fairlife (4oz of Fairlife and 4oz almond milk) protein shakes, and one meal (6 forks of protein and 6 forks of salad) Exercise: is doing treadmill (speed 3.5 incline 2-8) for 400 calories for 5 days PFSH Medical History Hypertension BMI 35.0-35.9,adult ESA (generalized anxiety disorder) Migraines Mild major depression, single episode Depression Obesity (BMI 30-39.9) Migraine without aura, not intractable Iron deficiency anemia Sickle cell trait Surgical History Hx of tonsillectomy Family History Father Hypertension Mother Migraines Hypertension Brother No problems noted. Social History Housing: House Alcohol intake: current Alcohol intake frequency: holidays/special occasions only Patient Tobacco Use Status: Never used Tobacco e-Cigarette/Vaping Use: Never Used Second Hand Smoke Exposure: No service: No Current occupational status: employed Current occupational exposures/hazards: No Cognitive needs: No Hearing needs: No Vision needs: No Quality Reporting (2019) Adult ([facility] 13807/04/68) Smoking risk assessment performed?: Yes Patient Tobacco Use Status: Never used Tobacco Telehealth Telehealth Telehealth Platform: Telephone Location of provider rendering services: practice address Location of patient: address on file Patient Identification confirmed using: Name, : Yes Telehealth method: voice only Patient verbally consented to treatment: Yes Patient verbally consented to billing insurance company: Yes Patient informed of any privacy concerns related to visit: Yes Minutes spent on Phone/Video with Pt.: 30 Assessment & Plan Assessment & Plan (1) Obesity (BMI 30-39.9): Code(s): E66.9 - Obesity, unspecified Category: Medical Plan: 1. Plan for lap sleeve gastrectomy including upper GI endoscopy. All tests has been completed and reviewed and the patient is cleared for the surgery. ?If diaphragmatic or ventral hernias are present at time of surgery, these will be repaired laparoscopically as well. Risks and complications were discussed in detail including possible conversion to an open procedure, anastomotic leak, bleeding requiring transfusion, small bowel obstruction, , DVT and pulmonary embolism, cardiac, or pulmonary complications, as halfway complications such as anastomotic ulcer, insufficient weight loss and vitamin deficiencies. I emphasized the importance of close follow-up, adherence to instructions and good communication. So far she has proven to be an excellent communicator and very compliant with all our directions accomplishing a great weight loss. I believe that she is an excellent candidate and she is ready. 2. Preop prescriptions were provided and explained the purpose of each one. Need to be purchased preop. Start Pantoprazole now as you get it from the pharmacy, 1 pill per day. Sucralfate and Zofran are for after surgery as needed. 3. Bowel prep: please do 7 packets ?of Miralax mixing each one with a an 8oz glass of water, crystal light, gatorade zero, or propel ?on 08/16/24 and the same amount on 08/17/24. The Miralax you begin with one packet at a time in 8oz water or crystal light, gatorade zero, or propel ?as early in the day as you can and you do them back to back until you finish them. Continue the protein shakes during ?the bowel prep. 4. Needs to purchase 1oz medicine cups . 5. Needs to purchase Children's liquid Tylenol for postop pain control. 6. She needs to stop the Meloxicam as of today 07/31/24. Avoid aspirin, motrin, Advil, Aleve, Meloxicam, Excedrin, Ibuprofen, Naproxyn. Tylenol is OK. 7. She needs to purchase the Celebrate multivitamins from the hospital's gift shop. 8. Will do basic preop blood work-up any day between Saturday08/10/24 and Saturday08/14/24 fasting for 12 hours and is scheduled to see the Anesthesiologist prior to the day of surgery. 9. Importance of adherence to postop folllow-up and recommendations was underscored and she understands that. 10. Stop food and bars as of Saturday08/10/24 and create an aggressive meal plan with the [employer] k[employer]ace and send me a screenshot of the plan you will create 11. No soups, broths or V8 12. The patient's?medical?history has been reviewed and they are considered low risk for post op DVT and therefore DVT prophylaxis is not considered necessary. Travel after surgery was reviewed. The patient has not disclosed any travel plans during the first 30 days after surgery and they have been advised that within the first 30 days after surgery any bus, plane, train or car travel over 2 hours in duration is contraindicated due to the possibility of developing blood clots from immobility. Any travel, needs to include periods of ambulation of 10 minutes in duration every 2 hours.? Patient was instructed to discuss any plans for travel during this period with their bariatric surgeon.? 13. Please take at the day of surgery the following medications: NONE 14. Stop any control pills and don't use them for one month after surgery 15. Absolutely no smoking or vaping, or marijuana until the surgery and for at least the first 4 weeks. Only nicotine patches are allowed. 16. Send me weight measurements on Saturday08/02/24 and 08/09/24 and then on Saturday08/18/24, the day of surgery before you go to the hospital. 17. Avoid any steroids by mouth for any reason. Let me know if someone prescribes them to you 18. These instructions supersede anything else you read in the handbook, anything you watched in videos or classes or you were told by any other provider. If there is any conflict, you follow the above instructions and nothing else. Orders: Orders Comprehensive Met. Panel Today E66.9 - Obesity, unspecified, I10 - Essential (primary) hypertension, Z68.31 - Body mass index [BMI] 31.0-31.9, adult Prothrombin Time INR Today E66.9 - Obesity, unspecified, I10 - Essential (pr imary) hypertension, Z68.31 - Body mass index [BMI] 31.0-31.9, adult Partial Thromboplastin Time Today E66.9 - Obesity, unspecified, I10 - Essential (primary) hypertension, Z68.31 - Body mass index [BMI] 31.0-31.9, adult C Reactive Protein Today E66.9 - Obesity, unspecified, I10 - Essential (primary) hypertension, Z68.31 - Body mass index [BMI] 31.0-31.9, adult Lipid Panel Today E66.9 - Obesity, unspecified, I10 - Essential (primary) hypertension, Z68.31 - Body mass index [BMI] 31.0-31.9, adult Hemoglobin A1c Today E66.9 - Obesity, unspecified, I10 - Essential (primary) hypertension, Z68.31 - Body mass index [BMI] 31.0-31.9, adult TSH reflex Free T4 Today E66.9 - Obesity, unspecified, I10 - Essential (primary) hypertension, Z68.31 - Body mass index [BMI] 31.0-31.9, adult Type and Screen Today E66.9 - Obesity, unspecified, I10 - Essential (primary) hypertension, Z68.31 - Body mass index [BMI] 31.0-31.9, adult Complete Blood Count Auto Diff Today E66.9 - Obesity, unspecified, I10 - Essential (primary) hypertension, Z68.31 - Body mass index [BMI] 31.0-31.9, adult Insulin Today E66.9 - Obesity, unspecified, I10 - Essential (primary) hypertension, Z68.31 - Body mass index [BMI] 31.0-31.9, adult Medications: New pantoprazole 40 mg PO DAILY 90 tabs 0RF K21.9 - Gastro-esophageal reflux disease without esophagitis sucralfate 10 mL PO BID 600 mL 2RF K21.9 - Gastro-esophageal reflux disease without esophagitis ondansetron Only take one every 12 hours as needed if you have nausea 4 mg PO Q12H 20 tabs 0RF nausea and vomiting R11.0 - Nausea polyethylene glycol 3350 Mix each measuring cup with 8oz of water, Crystal light, or Gatorade zero, or Propel and do 7 measuring cups on 08/16/24 and another 7 measuring cups on 08/17/24 17 grams PO DAILY 238 grams 0RF Z01.818 - Encounter for other preprocedural examination
[2024-07-31 08:59] VITALS: BMI 31.2
== END 2024-07-31 09:09 | disposition home or self-care (01) ==
LOC: HO.HBS 08:05
PROVIDERS: PCP Internal Medicine; Visit Provider Surgery
DX: E66.9 Obesity, unspecified (principal); Z68.31 Body mass index [BMI] 31.0-31.9, adult
CPT/HCPCS: 99499

== ENCOUNTER → 2024-08-10 07:51 | Outpatient (BNVA) | payer OTHER, SELFPAY | PROVIDERS: PCP Internal Medicine; Visit Provider Surgery | DX: E66.9 Obesity, unspecified (principal); Z68.31 Body mass index [BMI] 31.0-31.9, adult | CPT/HCPCS: 99211 ==

== ENCOUNTER 2024-08-18 05:39 | Day surgery (SDC) | payer OTHER, SELFPAY ==
[2024-08-04 10:32] VITALS: BMI 31.7
[2024-08-10 08:10] LABS: Prothrombin Time 12.2 SEC (10.9-12.4)
[2024-08-10 08:12] LABS: Partial Thromboplastin Time 33.4 SEC (26.0-36.8)
[2024-08-10 08:13] LABS: Basophils Percent Auto 0.6 % (0-2); Eosinophils Absolute Auto 0.1 X10*3/uL (0.0-0.4); Eosinophils Percent Auto 2.1 % (0-4); Hematocrit 36.2 % (37.0-47.0); Imm Gran Abs Auto 0.02 X10*3/uL (0.00-0.03); Imm Gran Pct Auto 0.4 % (0.0-0.4); Lymphocytes Absolute Auto 1.8 X10*3/uL (1.2-4.9); Lymphocytes Percent Auto 38.5 % (20-40); Mean Corpuscular HGB Conc 33.1 g/dl (31.0-35.0); Mean Corpuscular Hemoglobin 26.1 pg (27.0-33.0); Mean Corpuscular Volume 78.7 fL (80.0-98.0); Monocytes Absolute Auto 0.3 X10*3/uL (0.1-1.2); Monocytes Percent Auto 5.7 % (2-11); Neutrophils Absolute Auto 2.5 x10*3/uL (2.0-8.3); Neutrophils Percent Auto 52.7 % (45-73); Red Cell Distribution Width 12.7 % (11.0-16.0)
[2024-08-10 08:18] LABS: Platelet Count 140 X10*3/uL (160-400); White Blood Count 4.7 X10*3/uL (4.8-10.8)
[2024-08-10 08:20] LABS: Estimated Average Glucose 91 mg/dL; Hemoglobin A1C 90.7661 umol/L; Hemoglobin A1c % 4.8 % (<6.0)
[2024-08-10 09:03] LABS: Alkaline Phosphatase 63 U/L (39-117)
[2024-08-10 09:23] LABS: Alanine Aminotransferase 17 U/L (0-31); Albumin Level 3.9 g/dL (3.5-5.0); Anion Gap 12 (12-20); Aspartate Amino Transferase 19 U/L (5-31); Bilirubin Total 0.7 mg/dL (0.0-1.0); Blood Urea Nitrogen 12 mg/dL (9-16); C Reactive Protein < 0.10 mg/dL (< or = 0.50); Carbon Dioxide 24 mmol/L (22-29); Chloride 109 mmol/L (96-108); Cholesterol 157 mg/dL (<200); Estimated Glomerular Filt Rate > 60; Glucose Random 86 mg/dL (60-115); HDL Cholesterol 40 mg/dL (>40); Insulin 9 uU/mL (2-29); LDL Cholesterol Calculated 105 mg/dL (<100); Potassium 4.7 mmol/L (3.3-5.1); Sodium 140 mmol/L (135-145); TSH reflex Free T4 1.77 uIU/mL (0.32-4.0); Total Protein 6.6 g/dL (6.5-8.0); Triglycerides 64 mg/dL (<150)
--- NOTE | 2024-08-17 09:04 | HO.ANESPROP2 ---
Documented by User: Vane Jara NP 08/17/24 09:05 HPI - Anesthesia Eval Consult details Narrative: 29yo F for Gastrectomy Sleeve - EGD, possible diaphragmatic hernia, possible ventral hernia, possible open PMFSH Active Problems Active Problems: All Active Problems Lumbar pain (Acute) Vitamin B12 deficiency (Acute) Vitamin D deficiency (Acute) COVID (Acute) Migraine without aura (Acute) Upper respiratory infection (Acute) Excessive daytime sleepiness (Acute) Snoring (Acute) Abdominal pain (Acute) Skin lesions (Acute) Photophobia (Acute) Sleep difficulties (Acute) Low vitamin D level (Acute) Diarrhea (Acute) Adult general medical exam (Acute) Acute gastroenteritis (Acute) Tinea corporis (Acute) Allergic rhinitis (Acute) GERD (gastroesophageal reflux disease) (Acute) BMI 33.0-33.9,adult (Acute) Hypertension (Acute) BMI 35.0-35.9,adult (Acute) Migraine without aura, not intractable (Acute) ESA (generalized anxiety disorder) (Acute) Sickle cell trait (Acute) Migraines (Acute) Mild major depression, single episode (Acute) Depression (Acute) Obesity (BMI 30-39.9) (Acute) Past Medical History Medical History Hypertension BMI 35.0-35.9,adult ESA (generalized anxiety disorder) Migraines Mild major depression, single episode Depression Obesity (BMI 30-39.9) Migraine without aura, not intractable Iron deficiency anemia Sickle cell trait Family History Family History Father Hypertension Mother Migraines Hypertension Brother No problems noted. Surgical History Surgical History History of esophagogastroduodenoscopy (EGD) Hx of tonsillectomy History of Problems with Anesthesia: No Social History Social History Housing: House Are you a primary animal care service worker to a significant other at home: No Do you presently have visiting nurse or other home services: No Alcohol intake: current Alcohol intake frequency: does not drink Patient Tobacco Use Status: Never used Tobacco e-Cigarette/Vaping Use: Never Used Second Hand Smoke Exposure: No Use of substances other than those prescribed or required for medical reasons: No Have you been hit, kicked, punched, or otherwise hurt by someone within the past year? If so, by whom?: No Are you DNR?: No Advance Directives: No Advance Directives Information Provided: Yes Advance Directives on File: No Recently lost weight without trying: No Eating poorly because of decreased appetite: No Nutrition Risks: No Nutritional Risk Patient : No : No Poor oral hygiene: Yes (upper crown) service: No Current occupational status: employed Current occupational exposures/hazards: No Cognitive needs: No Hearing needs: No Vision needs: No Meds Allergies Allergy/AdvReac Type Severity Reaction Status Date / Time No Known Allergies Allergy Verified 08/18/24 06:16 [No Known Allergies*] Exam Height,Weight and Vital Signs: Height 5 ft 6 in Weight 89.086 kg Pertinent Lab Results Pertinent Lab Results: Laboratory Tests 08/10/24 08/10/24 07:39 07:49 WBC 4.7 L RBC 4.60 Hgb 12.0 Hct 36.2 L MCV 78.7 L MCH 26.1 L MCHC 33.1 RDW 12.7 Plt Count 140 L D MPV 12.0 Immature Gran % (Auto) 0.4 Neut % (Auto) 52.7 Lymph % (Auto) 38.5 [place] % (Auto) 5.7 Eos % (Auto) 2.1 Baso % (Auto) 0.6 Lymph # (Auto) 1.8 [place] # (Auto) 0.3 Eos # (Auto) 0.1 Baso # (Auto) 0.0 Abs Immat Gran (auto) 0.02 Absolute Neuts (auto) 2.5 Absolute Nucleated RBC 0.000 Nucleated RBC % (auto) 0.0 PT 12.2 INR 1.0 APTT 33.4 Sodium 140 Potassium 4.7 Chloride 109 H Carbon Dioxide 24 Anion Gap 12 BUN 12 Creatinine 0.74 Estim Creat Clear Calc 125.0 Estimated GFR > 60 Random Glucose 86 Estimat Average Glucose 91 Hemoglobin A1c % 4.8 Insulin Level 9 Calcium 9.0 Total Bilirubin 0.7 AST 19 ALT 17 Alkaline Phosphatase 63 C-Reactive Protein < 0.10 Total Protein 6.6 Albumin 3.9 Triglycerides 64 Cholesterol 157 LDL Cholesterol, Calc 105 H HDL Cholesterol 40 L TSH 1.77 Blood Type O Positive Antibody Screen NEGATIVE Narrative Narrative: EKG 05/2024 Vent. Rate : 79 BPM Atrial Rate : 79 BPM P-R Int : 160 ms QRS Dur : 68 ms QT Int : 364 ms P-R-T Axes : 52 10 17 degrees QTcB Int : 417 ms Normal sinus rhythm with sinus arrhythmia Normal ECG No previous ECGs available Assessment and Plan Assessment Anesthesia Assessment: Chart Reviewed Final Anesthetic Review History of Problems with Anesthesia: No Documented by User: Fernanda Agrawal MD 08/18/24 09:08 HPI - Anesthesia Eval Consult details Narrative: 29yo F for EGD, Laparoscopic Sleeve Gastrectomy, possible diaphragmatic hernia repair, possible ventral hernia repair, possible open PMFSH Active Problems Active Problems: All Active Problems Lumbar pain (Acute) Vitamin B12 deficiency (Acute) Vitamin D deficiency (Acute) Migraine without aura (Acute) Excessive daytime sleepiness (Acute) Snoring (Acute). Denies MIKKI Abdominal pain (Acute) Skin lesions (Acute) Photophobia (Acute) Sleep difficulties (Acute) Low vitamin D level (Acute) Diarrhea (Acute) Adult general medical exam (Acute) Acute gastroenteritis (Acute) Tinea corporis (Acute) Allergic rhinitis (Acute) GERD (gastroesophageal reflux disease) (Acute) BMI 33.0-33.9,adult (Acute) Hypertension (Acute)- ?. Could not verify. No medication BMI 35.0-35.9,adult (Acute) Migraine without aura, not intractable (Acute) ESA (generalized anxiety disorder) (Acute) Sickle cell trait (Acute) Migraines (Acute) Mild major depression, single episode (Acute) Depression (Acute) Obesity (BMI 30-39.9) (Acute) Past Medical History Medical History Hypertension BMI 35.0-35.9,adult ESA (generalized anxiety disorder) Migraines Mild major depression, single episode Depression Obesity (BMI 30-39.9) Migraine without aura, not intractable Iron deficiency anemia Sickle cell trait Family History Family History Father Hypertension Mother Migraines Hypertension Brother No problems noted. Family history of problems with anesthesia: No Surgical History Surgical History History of esophagogastroduodenoscopy (EGD) Hx of tonsillectomy History of Problems with Anesthesia: No Social History Social History Housing: House Are you a primary animal care service worker to a significant other at home: No Do you presently have visiting nurse or other home services: No Alcohol intake: current Alcohol intake frequency: does not drink Patient Tobacco Use Status: Never used Tobacco e-Cigarette/Vaping Use: Never Used Second Hand Smoke Exposure: No Use of substances other than those prescribed or required for medical reasons: No Have you been hit, kicked, punched, or otherwise hurt by someone within the past year? If so, by whom?: No Are you DNR?: No Advance Directives: No Advance Directives Information Provided: Yes Advance Directives on File: No Recently lost weight without trying: No Eating poorly because of decreased appetite: No Nutrition Risks: No Nutritional Risk Patient : No : No Poor oral hygiene: Yes (upper crown) service: No Current occupational status: employed Current occupational exposures/hazards: No Cognitive needs: No Hearing needs: No Vision needs: No Meds Allergies Allergy/AdvReac Type Severity Reaction Status Date / Time No Known Allergies Allergy Verified 08/18/24 06:16 [No Known Allergies*] Exam Height,Weight and Vital Signs: Height 5 ft 6 in Weight 89.086 kg Vital Signs Temp Pulse Resp BP Pulse Ox O2 Del Method 08/18/24 06:24 98.8 F 80 14 139/76 100 Room Air Pertinent Lab Results Pertinent Lab Results: Laboratory Tests 08/10/24 08/10/24 07:39 07:49 WBC 4.7 L RBC 4.60 Hgb 12.0 Hct 36.2 L MCV 78.7 L MCH 26.1 L MCHC 33.1 RDW 12.7 Plt Count 140 L D MPV 12.0 Immature Gran % (Auto) 0.4 Neut % (Auto) 52.7 Lymph % (Auto) 38.5 [place] % (Auto) 5.7 Eos % (Auto) 2.1 Baso % (Auto) 0.6 Lymph # (Auto) 1.8 [place] # (Auto) 0.3 Eos # (Auto) 0.1 Baso # (Auto) 0.0 Abs Immat Gran (auto) 0.02 Absolute Neuts (auto) 2.5 Absolute Nucleated RBC 0.000 Nucleated RBC % (auto) 0.0 PT 12.2 INR 1.0 APTT 33.4 Sodium 140 Potassium 4.7 Chloride 109 H Carbon Dioxide 24 Anion Gap 12 BUN 12 Creatinine 0.74 Estim Creat Clear Calc 125.0 Estimated GFR > 60 Random Glucose 86 Estimat Average Glucose 91 Hemoglobin A1c % 4.8 Insulin Level 9 Calcium 9.0 Total Bilirubin 0.7 AST 19 ALT 17 Alkaline Phosphatase 63 C-Reactive Protein < 0.10 Total Protein 6.6 Albumin 3.9 Triglycerides 64 Cholesterol 157 LDL Cholesterol, Calc 105 H HDL Cholesterol 40 L TSH 1.77 Blood Type O Positive Antibody Screen NEGATIVE Laboratory Results - last 24 hr 08/18/24 06:05 Urine Test NEGATIVE Airway Mallampati Class: II TM Dist: >3cm Neck ROM: Full Loose/Missing/Broken Teeth: Yes (Missing molar top left, extraction bottom right. Denies broken or loose teeth) Heart: RRR Lungs: CTAB Assessment and Plan Assessment Anesthesia Assessment: Anesthesia Plan Discussed and Chart Reviewed Final Anesthetic Review Family History of Problems with Anesthesia: No History of Problems with Anesthesia: No NPO: Yes ASA Class: II Final Preanesthetic Review: No Changes in Pt Med Stat, Meds/Allgs Chart Reviewed, Consent Obtained/Reviewed and Anes Risks/Benef Reviewed Patient Risk: Intermediate Procedure Risk: Intermediate Assessment/Block/Sedation in SS: Assess/Block/Sedation- Anesthetic Plan Anesthetic Plan: GA Disposition: Standard PACU and Inp. Admit - Standard Bed
[2024-08-18] VITALS (12 sets, daily range): BP systolic 102–139; BP diastolic 55–76; PULSE 72–90; RESP 14–25; TEMP 36.2–37.1; O2SAT 96–100
[2024-08-18 06:34] LABS: UPreg QC Valid YES; Urine Pregnancy NEGATIVE (NEGATIVE)
[2024-08-18] MEDS: Aprepitant 32 MG/4.4 ML VIAL IVPUSH (06:43)
[2024-08-18] MEDS: Lactated Ringers 1,000 ML 999 ML IV (06:43)
--- NOTE | 2024-08-18 07:20 | MHC.SHP ---
Pre-Procedural Eval Section A - 24 Hr Update-Section A only Date of Service: 08/18/24 The patient is an INPATIENT: No The patient has been examined within 24 hours of the surgical procedure. The History & Physical has been completed within 30 days and I have reviewed it.: Yes Section B - Complete if H&P > 30 days Chief Complaint: Obesity, unspecified Relevant Family History (Specify if Yes): No Relevant Social History: None Present Medications: None Medical History: No relevant PMH History of Previous Operations: No relevant previous surgery Allergies: Allergies Allergy/AdvReac Type Severity Reaction Status Date / Time No Known Allergies Allergy Verified 08/18/24 06:16 [No Known Allergies*] Review of Systems Sugical H&P ROS: Negative: Constitution, Cardiovascular, Respiratory, Neurological, Psychiatric, Hem-Onc, Allergic/Immunologic, Gastrointestinal, Genitourinary, Musculoskeletal, Integumentary, Endocrine and Eyes/Ears/Nose/Throat Exam Surgical H&P Exam: Normal: HEENT, Normal: Heart, Normal: Lungs, Normal: Extremities, Normal: Abdomen, Normal: Skin and Normal: Neurological Plan Diagnosis/Plan: Unchanged I have reviewed the history and physical and performed a pertinent physical examination on my patient. No changes have occurred unless specified. Time Spent With Patient Time: Total time managing care of this patient today ____ minutes.
--- NOTE | 2024-08-18 07:21 | P.BOP_ITS ---
Brief Operative Note Date of Service: 08/18/24 Pre-op diagnosis: Severe obesity Post-op diagnosis: same Procedure: INITIAL PATIENT BMI ON PRESENTATION AT OUR OFFICE: 35.2 kg/m2 LAST BMI BEFORE SURGERY: 31.6 kg/m2 COMORBIDITIES: hypertension, migraines, depression, GERD ?The patient presented to the Weight Management Program with significant obesity that was negatively impacting the patient's comorbidities as listed above.? The program is a phased program with a special focus on preoperative medical weight management to promote substantial weight loss and prepare the patients for the second phase of the program: bariatric surgery. The patient participated in an intensive weekly lifestyle ?intervention and exercise program during which the patient ?has lost between the initial office visit and the last preoperative visit 22.4 lbs, or 10.3% of initial actual body weight. It was deemed appropriate for the patient to now have bariatric surgery. In light of the current Covid-19 pandemic and the well documented strong association of obesity and increased risk of worse outcomes if infected with Covid-19 (REFERENCES: https://pubmed.ncbi.nlm.nih.gov/10075420/ ,? https://pubmed.ncbi.nlm.nih.gov/14230079/ ), any delay in undergoing bariatric surgery may lead to the patient's worsening health condition and increased?risk of more severe Covid-19 disease if infected. In addition a recent?study from [facility] published in [facility] on 05/08/2021 ([email or web address]) found that, among patients with obesity, substantial weight loss achieved with surgery was associated with improved outcomes of COVID-19 infection. The findings suggest that obesity can be a modifiable risk factor for the severity of COVID-19 infection. In addition, the patient met the BMI-criteria for bariatric surgery based on the BMI on initial presentation. The patient should not be penalized for achieving such weight loss because ?it is not sustainable long-term without surgical intervention and it was achieved in preparation for bariatric surgery ?under my direction and based on my published research ([email or web address]:/[email or web address] /[email or web address]).pdf and? https://www.soard.org/article/[email or web address](68)39423-X/pdf ) ?that a 10% preoperative weight loss improves long-term weight loss after surgery and reduces perioperative complications.? Insurance carriers such as [facility] have endorsed my recommendations ?and have included in their policies criteria to include a 10% preoperative weight loss requirement. PROCEDURE: Esophago-gastroscopy, laparoscopic sleeve gastrectomy and laparoscopic gastropexy INDICATIONS: This is a 29 year-old female who was electively scheduled for laparoscopic, possibly open sleeve gastrectomy. The risks and complications of the procedure were discussed with the patient in advance, particularly the possibility of ; pulmonary embolism; staple line leak; bleeding; GERD; cardiac, pulmonary, or renal complications; as well as long-term problems such as insufficient weight loss, vitamin deficiency, strictures, or ulcers. The patient understood all the risks, and was in agreement to proceed with surgery. DESCRIPTION OF PROCEDURE: After informed consent was obtained from the patient, the patient was given preoperative antibiotics, and was transferred to the operating room. After successful induction of general anesthesia, pneumatic compression devices were placed on both lower extremities. An upper endoscopy was performed next. The oropharynx and esophagus appeared to be within normal limits. There was a diaphragmatic hernia present of moderate size consistent with the findings of the preoperative upper GI. The stomach was entered. Then after all fluid and air were suctioned and the stomach was fully decompressed, the scope was withdrawn and secured in the mid esophagus. The patient was then prepped and draped in the usual sterile manner, and abdominal access was established at the right upper quadrant with the Darrel technique. A 12 mm blunt port was inserted, and the abdomen was insufflated with CO2 to a pressure of 15 mmHg. Under direct visualization, additional ports were placed, specifically two 5 mm Versi-step ports to the left upper quadrant, and a 5 mm Versi-Step port to the right upper quadrant. 1% lidocaine plain was used to infiltrate all port sites as well as all fascia defects. Using the EndoClose suture passer device, I placed a #1 Polysorb tie across the falciform ligament in order to retract it up against the abdominal wall and prevent injury of the ligament with our instruments during the procedure. Following that, the patient was placed in a steep reverse Trendelenburg position. An additional 5 mm port was placed to the right flank for the Mediflex retractor that was used to retract the left lobe of the liver. The gastro-esophageal fat pad was opened with the ultrasonic device (Thunderbeat, Olympus) and the anterior esophagus and hiatus were exposed. The angle of His was opened with the ultrasonic device the fundus of the stomach from any diaphragmatic and splenic attachments. I then opened the gastrocolic ligament between the transverse colon and the greater curvature of the stomach with the ultrasonic device to enter the lesser sac and facilitate the ligation of the short gastric vessels. I started at a mid-point along the greater curvature and using the Thunderbeat, all short gastric vessels were divided all the way to the angle of His until the left shady was completely dissected at its entirety. I then divided the gastro-colic ligament distally to a distance of about 3-4 cm proximal to the pylorus.? The stomach was then divided transversely with two Endo ANDREW-45 purple and three ANDREW-60 articulating purple loads using the SIGNIA stapler and loads. Every effort was made that the gastric sleeve had a tubular shape and an even caliber throughout. Once the sleeve resection was completed, the staple line of the gastric sleeve was reinforced with Hemoclips. The resected stomach was retrieved without difficulty from the Darrel port. A gastropexy was then performed in order to prevent postoperative GERD and partial gastric volvulus. Several interrupted 2.0 Surgidac sutures were placed between the sleeve's staple line and the previously divided greater omentum and gastro-colic ligament using the Endo-Stitch device. ?An upper endoscopy was performed. There was no narrowing at the GE junction. The scope was easily advanced all the way to the pylorus which was clearly visualized. There was no narrowing anywhere and the sleeve's caliber was even throughout. The sleeve's staple line was inspected and there was no evidence of ischemia, bleeding or dehiscence. At that point the gastroscope was withdrawn from the patient?s mouth while we were decompressing the bowel and the stomach from any remaining air. I looked into the lesser sac to see how the sleeve was situating and it was situating well. There was no bleeding from the staple line, spleen, or short gastric vessels. The Mediflex retractor was removed, and the undersurface of the liver was inspected and there was no bleeding. The patient was placed in supine position. I closed the fascial defect of the 12 mm port site with a figure of eight #1 Polysorb suture. Then 30cc Ropivacaine plain with 10 mg of Dexamethasone were used to infiltrate the fascial closure as well as all skin incisions. At this point, the abdomen was deflated, all ports were removed under direct vision, and no bleeding was noted from any of the port sites. The skin incisions were irrigated with saline and were closed with 4-0 absorbable monofilament sutures. Steri-Strips and OpSites were used to cover all incisions. The patient was extubated and was transferred in stable condition to the recovery room for further care. I was present and performed all leal parts of the procedure. Ms. Cheung was the assistant director. There were no residents to assist with this case. Adolfo Coker MD, PhD, FACS Surgeon: Isaac Coker MD Anesthesia: GETA, local and other (TAP block) Was an Advertising Solicitor used for this Procedure?: No Advertising Solicitor: Vanessa Cheung Estimated blood loss (mL): 10 IV fluids (mL): 2,600 Urine output (mL): 0 (No Kumar to record output) Pathology: other (1) Stomach, 2) Gastro-esophageal fat pad) Condition: stable Disposition: PACU
--- NOTE | 2024-08-18 07:24 | P.PNGS_ITS ---
Subjective Subjective Date of Service: 08/19/24 Interval history: Feels well. Mild incisional pain. She is tolerating phase 1 bariatric diet Physical Exam 2 Vital Signs: Vital Signs: Last Vital Signs Temp 98.8 F 08/18/24 06:24 Pulse 80 08/18/24 06:24 Resp 14 08/18/24 06:24 BP 139/76 08/18/24 06:24 Pulse Ox 100 08/18/24 06:24 O2 Del Method Room Air 08/18/24 06:24 BMI result Body Mass Index 31.7 GI: Inspection: Yes normal to inspection, Yes incision (clean, dry and intact) and Yes obesity Palpation (GI): Soft to palpation Extrem: Right lower extremity: normal to inspection (no calf tenderness) L eft lower extremity: normal to inspection (no calf tenderness) Objective Data Active Medications Lactated Ringer's (Lr) 1,000 mls @ 100 mls/hr IVCONT .Q10H GIORIGO Lactated Ringer's (Lr) 1,000 mls @ 999 mls/hr IV .Q1H1M GIORGIO Stop: 08/18/24 08:15 Last Admin: 08/18/24 06:43 Dose: 999 mls/hr Documented By: DEISY Labs 08/19/24 05:56 08/19/24 05:56 Labs: Laboratory Results - last 24 hr 08/18/24 06:05 Urine Test NEGATIVE Procedures Date of Service Date of Service: 08/19/24 Progress Note: A&P Assessment and plan (1) Obesity (BMI 30-39.9): Status: Acute Assessment and Plan: s/p laparoscopic sleeve gastrectomy and gastropexy Doing well Will check am labs and if OK the patient will be discharged home (2) BMI 31.0-31.9,adult: Status: Acute (3) Depression: Status: Acute (4) GERD (gastroesophageal reflux disease): Status: Acute (5) Migraine without aura, not intractable: Status: Acute (6) S/P laparoscopic sleeve gastrectomy: Status: Acute Time Spent With Patient Time: Total time managing care of this patient today ____ minutes. Quality Stroke Does the patient have a stroke diagnosis?: No VTE Prior VTE?: No VTE Risk Level:: Surgical - moderate VTE Device Contraindication: N/A - Device Ordered VTE Drug Contraindication: Treatment Not Indicated
[2024-08-18] MEDS: ceFAZolin Sodium/Dextrose,Iso 2 GM/50 ML PIGGYBACK IV ×2 (07:40→13:29)
[2024-08-18] MEDS: Acetaminophen 1,000 MG/100 ML PIGGYBACK 400 MG IV (07:45)
--- NOTE | 2024-08-18 09:50 | P.DS_ITS ---
DS: Providers Provider Date of Service: 08/19/24 Date of discharge: 08/19/24 Primary care physician: Liza Carlos MD DS: Diagnosis Discharge Diagnosis (1) Obesity (BMI 30-39.9): Status: Acute (2) BMI 31.0-31.9,adult: Status: Acute (3) Depression: Status: Acute (4) GERD (gastroesophageal reflux disease): Status: Acute (5) Migraine without aura, not intractable: Status: Acute DS: Summary Hospital Course Hospital Course: ADMITTING DIAGNOSIS: obesity,?back pain, migraines, GERD, allergic rhinitis, HTN, anxiety, sickle cell trait, depression ? DISCHARGE DIAGNOSIS: same, s/p laparoscopic sleeve gastrectomy and gastropexy ? PAST SURGICAL HISTORY:?tonsillectomy ? PROCEDURE: upper endoscopy, laparoscopic sleeve gastrectomy and gastropexy ? DISCHARGE SUMMARY: ? History of Present Illness: ? The patient is a 29?year-old woman with a BMI of?31.2? kg/m2 and associated co- morbidities as described above. The patient had extensive work-up, lost?21.8 lbs preoperatively and was electively scheduled for laparoscopic, possible open sleeve gastrectomy and gastropexy. Risks and complications of the surgery were discussed with the patient in advance, particularly the possibility of , pulmonary embolism, anastomotic leak, bleeding, bowel injury, GERD, cardiac, renal or pulmonary complications. The patient understood all the risks and was in agreement with the surgical plan. ? Hospital Course: ? The patient underwent an uneventful laparoscopic sleeve gastrectomy with gastropexy on the day of admission. Postoperatively, the patient was transferred to the surgical floor. The patient received IV Acetaminophen and IV dilaudid for pain control. Patient was started on bariatric phase 1 diet POD #0. On postoperative day one, the patient was feeling well without nausea, vomiting, fevers, or tachycardia. The patient had some mild incisional pain and the abdomen was soft.? ? On the morning of postoperative day one, the patient was continued on 1 ounce of water or ice every half hour. During the day, the patient did fairly well, having some incisional pain, but able to ambulate adequately and to tolerate liquids well. ? Since the patient is doing well, we decided that the patient was ready to be discharged. The patient was given instructions to follow-up with me next week and to call my office for any fever over 101, persistent abdominal pain, nausea, vomiting, GERD, symptoms of DVT such as calf tenderness, or leg swelling, or pulmonary embolism such as chest pain or shortness of breath.? The patient was also instructed to drink 40-60 ounces of liquids per day using the 1-ounce cups. The patient had been given prescriptions for Tylenol for pain, Zofran prn for nausea, and pantoprazole and carafate previously. The patient was encouraged to ambulate and use the incentive spirometer. The patient was allowed to shower, but no baths, and encouraged to stay active at home. All of these instructions were given to the patient personally. All questions were answered and the patient understood all instructions, the instructions were also given to the patient in print. Time Attestation Discharge Coordination Time (in mins): 30 Quality: Safe Use of Opioids Does Pt have an Active Cancer Diagnosis on the Problem List?: No Quality: Stroke Does the patient have a stroke diagnosis?: No Physical Exam Vital Signs: Vital Signs: Last Vital Signs Temp 98.8 F 08/18/24 06:24 Pulse 80 08/18/24 06:24 Resp 14 08/18/24 06:24 BP 139/76 08/18/24 06:24 Pulse Ox 100 08/18/24 06:24 O2 Del Method Room Air 08/18/24 06:24 BMI result Body Mass Index 31.7 DS: Data Data Completed and Pending Pending studies at discharge: Pending at discharge 08/18/24 09:04 Surgical [PTH] Routine Labs on day of discharge: Laboratory Results - last 24 hr 08/18/24 06:05 Urine Test NEGATIVE Discharge Plan Discharge Patient Disposition: Home, Self-Care Referrals: Liza Camacho MD [Primary Care Provider] - 1 Week Discharge Medications: Continued sumatriptan succinate 100 mg tablet 50 - 100 mg PO .COMPLEX PRN (Reason: migraine headache) 30 Days Qty: 12 6RF Rx Instructions: 50 - 100 mg orally at onset of headache, may repeat in 2 hrs PRN; max 2 tabs per day or 4 tabs/week (may take with Ibuprofen or Aleve) cetirizine [Allergy Relief (cetirizine)] 10 mg tablet 10 mg PO DAILY PRN (Reason: allergy symptoms) 90 Days Qty: 90 0RF pantoprazole 40 mg tablet,delayed release (DR/EC) 40 mg PO DAILY@0630 Discontinued cholecalciferol (vitamin D3) 125 mcg (5,000 unit) capsule 125 mcg PO DAILY Qty: 90 0RF mecobalamin (vitamin B12) 1,000 mcg tablet,disintegrating 1,000 mcg sublingual DAILY Qty: 90 0RF Rx Instructions: place tablet under tongue and allow to dissolve for at least30 secs before swallowing cyanocobalamin (vitamin B-12) 1,000 mcg tablet, sublingual 1,000 mcg sublingual DAILY cholecalciferol (vitamin D3) 125 mcg (5,000 unit) capsule 125 mcg PO DAILY polyethylene glycol 3350 [Gavilax] 17 gram/dose powder 17 g PO DAILY PRN (Reason: Constipation) polyethylene glycol 3350 17 gram/dose powder 17 g PO DAILY Qty: 238 0RF Rx Instructions: Mix each measuring cup with 8oz of water, Crystal light, or Gatorade zero, or Propel and do 7 measuring cups on 08/16/24 and another 7 measuring cups on 08/17/24 Discharge Orders: Discharge Order (Routine); Ordered 08/19/24 Ordered By: Isaac Coker Activity on Discharge: No heavy lifting Activity Restrictions/Additional Instructions: No tub baths, sex or returning to work until discussed at first post op appointment. No alcohol, tobacco or illegal drug use. Continue to use incentive spirometer hourly while awake. Walk in home for 5- 10 minutes every 2 hours during the first week. Wear abdominal binder with activity. Follow all meal plan instructions from your bariatric surgeon. Review bariatric handbook and call with any questions. Discharge Instructions 1. Please call your doctor or come back to the emergency room should any new symptoms arise. 2. Activity: abstain from alcohol,? limited stair climbing, no bending, no driving, no exercise, no illicit substances, no lifting, no sex, no tub bath, no work. 4. Diet: follow your bariatric surgeons recommendations for advancing diet. 5. Dressing Change/Wound Care: Your incisions are covered with waterproof dressings. You can shower with these and pat dry. Do not rub over dressings or incisions. If the area is tender, you may apply an ice pack for short intervals (no more than 20 minutes on, followed by at least 20 minutes off). Do not apply heat. Do not use creams, lotions, or topical antibiotics unless instructed to do so by your surgeon. 6. Call your doctor if: - Your temperature exceeds 101.5 F - You experience excessive pain or swelling - You have an unexpected reaction to medication - You have excessive bleeding - You experience continued vomiting/nausea - Your incision begins to separate - Your incision shows signs of infection such as increased redness, swelling, excessive pain, heat, or drainage (light blood or clear fluid is normal) General instructions: No lifting greater than 10 lbs for the next 6 weeks[address] within 24 hours of taking narcotic pain medications. If you do not move your bowels in the next 2 days, please take milk of magnesia over the counter. Please follow the post op diet and do not advance your diet until you are seen in the office in about 2 weeks. Please walk around your home every hour or two to prevent blood clots from forming in your legs. You do not need to wake from sleeping to walk. Please sleep in a bed or couch to prevent kinking at the hips and knees. Please take your incentive spirometer (your lung hand buffing wheel former) home with you and use it for the next few days to prevent pneumonias. You may shower, no hot tubs, baths or swimming pools. Please call the office with any questions or concerns such as increasing abdominal pain, fever, chills, shortness of breath, chest pain, leg pain or swelling, or redness or drainage from your incisions. Please make sure you are consuming 40-60 ounces of total fluids per day. Avoid all carbonation. Do not hesitate to contact the office with any questions at . The patient's medical history has been reviewed and they are considered low risk for post op DVT and therefore DVT prophylaxis is not considered necessary. Travel after surgery was reviewed. The patient has not disclosed any travel plans during the first 30 days after surgery and they have been advised that within the first 30 days after surgery any bus, plane, train or car travel over 2 hours in duration is contraindicated due to the possibility of developing blood clots from immobility. Any travel, needs to include periods of ambulation of 10 minutes in duration every 2 hours.? The patient was instructed to discuss any plans for travel during this period with their bariatric surgeon. Print Language: Polish Discharge Date/Time: 08/19/24 08:54
[2024-08-18] MEDS: Lactated Ringers 1,000 ML 100 ML IVCONT ×3 (09:54→22:19)
[2024-08-18 10:26] LABS: Hematocrit 33.8 % (37.0-47.0); Hemoglobin 11.6 g/dl (12.0-16.0)
[2024-08-18 10:55] LABS: Anion Gap 11 (12-20); Blood Urea Nitrogen 14 mg/dL (9-16); Calcium 8.5 mg/dL (8.4-10.2); Carbon Dioxide 20 mmol/L (22-29); Chloride 110 mmol/L (96-108); Estimated Glomerular Filt Rate > 60; Glucose Random 129 mg/dL (60-115); Potassium 3.9 mmol/L (3.3-5.1); Sodium 137 mmol/L (135-145)
[2024-08-18] MEDS: HYDROmorphone HCl 0.5 MG/0.5 ML SYRINGE 0.25 MG IVPUSH (11:43)
[2024-08-18] MEDS: Acetaminophen 1,000 MG/100 ML PIGGYBACK 16.7 MG IV ×2 (14:34→20:03)
--- NOTE | 2024-08-18 17:17 | PHA.MEDREC ---
Addendum entered by Jimenez [facility] 08/18/24 17:26: med rec reviewed Original Note: Pharmacy Consult ? Medication Reconciliation Pharmacy has completed the medication reconciliation. Spoke with patient and she was able to confirm her medications. Patient confirmed she is no longer taking the Propanolol as of last week (08/13) and states she started getting dizzy taking it. She also stated her Dr stopped the Ubrelvy back in June. She confirmed she has the Sumatriptan tablets at home still as needed for migraines and takes them only when needed. She confirmed her Dr prescribed and tole her to take Ondansetran, Sucralfate and Celebrate MultiVitamins after she gets home from the surgery tomorrow. She confirmed she took her medications last yesterday morning.
[2024-08-18] MEDS: 0.9 % Sodium Chloride Flush 3 ML SYRINGE IVFLUSH (20:06)
[2024-08-18] MEDS: Famotidine/PF 20 MG/2 ML VIAL IVPUSH (20:06)
[2024-08-19] MEDS: Acetaminophen 1,000 MG/100 ML PIGGYBACK 16.7 MG IV (01:59)
[2024-08-19 03:03] VITALS: BP 133/78; PULSE 83; RESP 16; TEMP 36.2; O2SAT 99
[2024-08-19 07:00] LABS: Basophils Percent Auto 0.2 % (0-2); Eosinophils Percent Auto 0.1 % (0-4); Hemoglobin 11.7 g/dl (12.0-16.0); Imm Gran Abs Auto 0.04 X10*3/uL (0.00-0.03); Imm Gran Pct Auto 0.3 % (0.0-0.4); Lymphocytes Absolute Auto 1.3 X10*3/uL (1.2-4.9); Lymphocytes Percent Auto 10.8 % (20-40); MANUAL DIFF FLAG SCAN; Mean Corpuscular HGB Conc 34.4 g/dl (31.0-35.0); Mean Corpuscular Hemoglobin 26.4 pg (27.0-33.0); Mean Corpuscular Volume 76.6 fL (80.0-98.0); Monocytes Absolute Auto 0.9 X10*3/uL (0.1-1.2); Monocytes Percent Auto 6.8 % (2-11); Neutrophils Absolute Auto 10.2 x10*3/uL (2.0-8.3); Neutrophils Percent Auto 81.8 % (45-73); PLT CLUMP 1; Red Blood Count 4.44 X10*6/uL (4.20-5.50); Red Cell Distribution Width 12.6 % (11.0-16.0); SCAN SMEAR FLAG 1
[2024-08-19 07:01] LABS: White Blood Count 12.4 X10*3/uL (4.8-10.8)
[2024-08-19 07:17] LABS: Anion Gap 13 (12-20); Blood Urea Nitrogen 8 mg/dL (9-16); Calcium 8.8 mg/dL (8.4-10.2); Carbon Dioxide 21 mmol/L (22-29); Chloride 108 mmol/L (96-108); Creatinine Clr Calc Pharmacy 132.1; Estimated Glomerular Filt Rate > 60; Glucose Random 79 mg/dL (60-115); Potassium 4.4 mmol/L (3.3-5.1); Sodium 138 mmol/L (135-145)
[2024-08-19 07:20] VITALS: BP 150/92; PULSE 71; RESP 18; TEMP 36.5; O2SAT 99
[2024-08-19] MEDS: Famotidine/PF 20 MG/2 ML VIAL IVPUSH (07:29)
[2024-08-19 08:10] LABS: SLIDE REVIEW VERIFIED
--- NOTE | 2024-08-19 08:19 | HO.POSTANES ---
Post Anesthesia Evaluation Post Anesthesia Evaluation Date of Service: 08/19/24 Vital Signs: Vital Signs Temp Pulse Resp BP Pulse Ox O2 Del Method 08/19/24 07:20 97.7 F 71 18 150/92 H 99 Room Air 08/19/24 03:03 97.2 F 83 16 133/78 99 Room Air 08/18/24 23:38 97.4 F 84 16 130/76 96 Room Air Anesthesia: General Endotracheal-GETA Mental Status: Awake Pain Control: Satisfactory Nausea/Vomiting: None Hydration: Adequate Anesthesia-Related Issues: No Anes. Related Issues
--- NOTE | 2024-08-19 11:46 | MHC.CM.PN ---
pt dcd home prior to being seen by cm pt dcd home self care
== END 2024-08-19 08:54 | disposition home or self-care (01) ==
LOC: HO.SSS 09:50 → HO.S3 10:09
PROVIDERS: Nurse Practitioner; Physician Assistant Surgical; PCP Internal Medicine; Visit Provider Surgery
PROC: (CPT 43845; principal; 2024-08-18 07:30)
DX: E66.9 Obesity, unspecified (principal); Z68.31 Body mass index [BMI] 31.0-31.9, adult; K21.9 Gastro-esophageal reflux disease without esophagitis; I10 Essential (primary) hypertension; R11.0 Nausea; D50.9 Iron deficiency anemia, unspecified; D57.3 Sickle-cell trait; G43.009 Migraine without aura, not intractable, without status migrainosus; R10.9 Unspecified abdominal pain; F32.0 Major depressive disorder, single episode, mild; F41.1 Generalized anxiety disorder; Z79.1 Long term (current) use of non-steroidal anti-inflammatories (NSAID); Z79.899 Other long term (current) drug therapy
CPT/HCPCS: 43775; 43659; 36415; 80048; 80053; 80061; 81025; 83036; 83525; 84443; 85014; 85018; 85025; 85610; 85730; 86140; 86850; 86900; 86901; 88304; 88305; 88307; 88342; A4649; C9145; J0131; J0690; J1100; J1171; J2003; J2250; J2405; J2704; J2795; J3010; J7120

== ENCOUNTER → 2024-08-18 05:39 | Outpatient (BNV) | payer OTHER, SELFPAY | PROVIDERS: PCP Internal Medicine; Visit Provider Surgery | DX: E66.9 Obesity, unspecified (principal); Z68.31 Body mass index [BMI] 31.0-31.9, adult; F32.0 Major depressive disorder, single episode, mild; K21.9 Gastro-esophageal reflux disease without esophagitis; G43.009 Migraine without aura, not intractable, without status migrainosus; Z98.84 Bariatric surgery status | CPT/HCPCS: 43659; 43775; 99024; 99499 ==

== ENCOUNTER 2024-08-26 14:31 | Outpatient (AMB) | payer OTHER, SELFPAY ==
--- NOTE | 2024-08-26 14:33 | MHC.OFFVISWM ---
VS Expanded 08/26/24 14:36 BP 116/80 Blood Pressure Location Lt brachial Blood Pressure Position Sitting Pulse 102 H Pulse Oximetry 100 Height 5 ft 6 in Weight 182 lb BMI 29.4 Body Fat % 40.5 Body Fat Mass 73.6 Fat Free Mass 108.2 Visceral Fat Rating 6.0 Body Water % 42.7 Body Water Mass 77.6 Muscle Mass/Score 102.8 Basal Metabolic Rate/Score 1,531 Intake Visit Reasons: (OV) PO LSG 08/18/24 Allergies No Known Allergies [No Known Allergies*] Allergy (Verified 08/26/24 14:33) Medication List - Last Reconciled 08/26/24 by HAILEY Salvador cetirizine (Allergy Relief (cetirizine)) 10 mg PO DAILY PRN 90 days pantoprazole 40 mg PO DAILY@0630 sumatriptan succinate 50 - 100 mg orally at onset of headache, may repeat in 2 hrs PRN; max 2 tabs per day or 4 tabs/week (may take with Ibuprofen or Aleve) 30 days HPI Comments Details: Pt is 8 days week s/p LSG 08/18/2024. Denies pain, N/V. Tolerating 3 premade Fairlife shakes each 4oz shake in 4oz unsweetened almond milk. Reports today was difficult to get adequate hydration due to seasonal allergies. Before today was consistently getting 40+oz. [facility] Medical History Hypertension BMI 35.0-35.9,adult ESA (generalized anxiety disorder) Migraines Mild major depression, single episode Depression Obesity (BMI 30-39.9) Migraine without aura, not intractable Iron deficiency anemia Sickle cell trait Surgical History History of esophagogastroduodenoscopy (EGD) Hx of tonsillectomy Family History Father Hypertension Mother Migraines Hypertension Brother No problems noted. Social History Household Members: Family Housing: House Are you a primary manager medicare to a significant other at home: No Do you presently have visiting nurse or other home services: No Alcohol intake: current Alcohol intake frequency: does not drink Patient Tobacco Use Status: Never used Tobacco e-Cigarette/Vaping Use: Never Used Second Hand Smoke Exposure: No service: No Current occupational status: employed Current occupational exposures/hazards: No Cognitive needs: No Hearing needs: No Vision needs: No Physical Exam Vital Signs: Last Vital Signs Pulse 102 H 08/26/24 14:36 BP 116/80 08/26/24 14:36 Pulse Ox 100 08/26/24 14:36 BMI result Body Mass Index 29.4 Const General: cooperative, comfortable and no acute distress Orientation/consciousness: patient oriented x3 GI Other: soft, nontender, nondistended, steri-strips c/d/i Neuro General: patient oriented x3 Quality Reporting (2019) Adult ([facility] ) Smoking risk assessment performed?: Yes Patient Tobacco Use Status: Never used Tobacco Assessment & Plan Assessment & Plan (1) S/P laparoscopic sleeve gastrectomy: Code(s): Z98.84 - Bariatric surgery status Category: Surgical (2) Overweight: Code(s): E66.3 - Overweight Category: Medical Plan May shower tomorrow but no bath or submersion of abdomen in water. May start exercise in 2 days.? No abdominal exercises x 6 weeks. Abdominal binder for the next 2 weeks with activity or exercise. Continue meal plan per Dr Gan until next f/u in 2 weeks. Reviewed pantoprazole and carafate dosing. Reminded of the pace of drinking 2 mL/min or 1oz per 15 min. Will be emailed link for post op video for review. RTC 3 weeks.
[2024-08-26 14:36] VITALS: BP 116/80; PULSE 102; O2SAT 100; BMI 29.4
== END 2024-08-26 15:34 | disposition home or self-care (01) ==
LOC: HO.HBS 14:31
PROVIDERS: PCP Internal Medicine; Visit Provider Physician Assistant Surgical
DX: E66.3 Overweight (principal); Z98.84 Bariatric surgery status
CPT/HCPCS: 99024

== ENCOUNTER → 2024-08-26 14:31 | Outpatient (BNVA) | payer OTHER, SELFPAY | PROVIDERS: PCP Internal Medicine; Visit Provider Physician Assistant Surgical ==

== ENCOUNTER 2024-09-09 17:21 | Outpatient (AMB) | payer OTHER, SELFPAY ==
--- NOTE | 2024-09-09 17:22 | A.OFFPC_ITS ---
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 Required: No Accompanied by: Self / Same As Patient Allergies No Known Allergies [No Known Allergies*] Allergy (Verified 09/09/24 17:33) Medication List - Last Reconciled 09/09/24 by Liza Carlos MD cetirizine (Allergy Relief (cetirizine)) 10 mg PO DAILY PRN 90 days pantoprazole 40 mg PO DAILY@0630 sucralfate mL PO sumatriptan succinate 50 - 100 mg orally at onset of headache, may repeat in 2 hrs PRN; max 2 tabs per day or 4 tabs/week (may take with Ibuprofen or Aleve) 30 days Tobacco use date assessed: 09/09/24 Dental Screening Dental Screen Date: 09/09/24 Did you have a dental visit in the last 12 months?: Yes Did you have a dental problem in the last 6 months where you did not have access to dental care?: No Was dental information given to patient?: Patient has dentist HPI HPI Comments History of Present Illness Details The patient is a 29-year-old female presenting for a routine wellness visit. Among the visit?s discussions was her need for updating the tetanus vaccine, last administered in 2010, with expectation of minimal side effects. Recent lab results indicated hemoglobin at 11.7 g/dL, prompting monitoring for anemia while currently deemed stable. The patient's prior Pap smear was conducted in 2019, exceeding the advised two-year interval for renewal, requiring a referral to facilitate it. Following a sleeve gastrectomy three weeks ago, the patient noted significant weight reduction from 220 pounds to 179 pounds. Before this procedure, elevated blood pressure required treatment, which has since stabilized post-surgery; she has discontinued medication but will continue self-monitoring. Her current medications include pantoprazole and sumatriptan, with modifications in usage adhering to postoperative guidelines. Her medical history includes tonsillectomy and endoscopy. The absence of smoking habits was confirmed, with alcohol limited to social gatherings, last consumed in March during a family visit in the [facility] [place]. Notably, familial essential hypertension is present in both parents. - Administer Tdap vaccine due to the las t tetanus vaccine being from 2010. - Referral required for Pap smear due to surpassing the two-year interval. [facility] Medical History (Updated 09/09/24 @ 19:21 by Liza Carlos MD) COVID Upper respiratory infection Adult general medical exam Acute gastroenteritis BMI 33.0-33.9,adult Hypertension BMI 35.0-35.9,adult ESA (generalized anxiety disorder) Migraines Mild major depression, single episode Depression Obesity (BMI 30-39.9) Migraine without aura, not intractable Iron deficiency anemia Sickle cell trait Surgical History History of sleeve gastrectomy History of esophagogastroduodenoscopy (EGD) Hx of tonsillectomy Family History Father Hypertension Mother Migraines Hypertension Brother No problems noted. Social History (Updated 09/09/24 @ 17:39 by Liza Carlos MD) Household Members: Family Housing: House Are you a primary team primary care physician to a significant other at home: No Do you presently have visiting nurse or other home services: No Alcohol intake: never Patient Tobacco Use Status: Never used Tobacco e-Cigarette/Vaping Use: Never Used Second Hand Smoke Exposure: No service: No Current occupational status: employed Current occupational exposures/hazards: No Cognitive needs: No Hearing needs: No Vision needs: No Questionnaire PHQ-9 Over the last 2 weeks, how often have you been bothered by any of the following problems? 1. Little interest or pleasure in doing things: not at all 2. Feeling down, depressed, or hopeless: not at all 3. Trouble falling or staying asleep, or sleeping too much: not at all 4. Feeling tired or having little energy: not at all 5. Poor appetite or overeating: not at all 6. Feeling bad about yourself - or that you are a failure or have let yourself or your family down: not at all 7. Trouble concentrating on things, such as reading the newspaper or watching television: not at all 8. Moving or speaking so slowly that other people could have noticed. Or the opposite - being so fidgety or restless that you have been moving around a lot more than usual: not at all 9. Thoughts that you would be better off or of hurting yourself in some w ay: not at all Total score: 0 Depression Screening Interpretation: Negative Depression Screening Done: Yes Source: Developed by Drs. Rd Garnett, Anna Armstrong, Jhonny Galan and colleagues, with an educational erin from [employer]. Thrive Questionnaire Date Thrive assessed: 09/08/24 I am a: Patient What is your living situation today?: I have a steady place to live Within the past 12 months, did the food you bought not last and you didn't have the money to get more?: Never true Within the past 12 months, did you worry whether your food would run out before you got money to buy more?: Never true Do you have trouble paying for medicines?: No Do you have trouble getting transportation to medical appointments?: No Do you have trouble paying your heating and electricity bill?: No Do you have trouble taking care of your child, family member or friend?: No Do you have trouble with day-to-day activities such as bathing, preparing meals, shopping, managing finances, etc.?: No Are you currently unemployed and looking for a job?: No Are you interested in more education?: I choose not to answer this question Please select the resources that you would like help with: None Currently or been in a relationship where the following occur: No concerns reported THRIVE Score: 0 AUDIT C Alcohol Use Questionnaire (AUDIT-C) 1. How often do you have a drink containing alcohol?: Never Total Score: 0 Score Reviewed/Action Taken: No ESA-7 AMB Questionnaire ESA-7 Date ESA - 7 assessed: 09/09/24 Feeling nervous, anxious, or on edge: 0 = Not at all Not being able to stop or control worryin = Not at all Worrying too much about different things: 0 = Not at all Trouble relaxin = Not at all Being so restless that it is hard to sit still: 0 = Not at all Becoming easily annoyed or irritable: 0 = Not at all Feeling afraid as if something awful might happen: 0 = Not at all Total ESA-7 score (0-4 normal; 5-9 mild; 10-14 moderate; 15-21 severe): 0 Source: Developed by Drs. Rd Garnett, Anna Armstrong, Jhonny Galan and colleagues, with an educational erin from [employer]. ESA-7 Assessment Billing ESA-7 Assessment Tool: ESA-7 Assessment 43829 Review of Systems Const All systems reviewed & are unremarkable except as noted in HPI and below Card Denies chest pain at rest, Denies chest pain with activity, Denies edema, Denies irregular heart rhythm, Denies claudication, Denies dyspnea, Denies dyspnea on exertion, Denies orthopnea, Denies paroxysmal nocturnal dyspnea and Denies slow heart rate Resp Denies cough, Denies dyspnea and Denies dyspnea on exertion Physical exam (Primary Care) Vital Signs: Last Vital Signs BP 120/70 09/09/24 17:24 BMI result Body Mass Index 29.4 Tobacco/Smoking Status: Tobacco use Status Tobacco use date assessed 09/09/24 09/09/24 17:29 Patient Tobacco Use Status Never used Tobacco 09/09/24 17:39 e-Cigarette/Vaping Use Never Used 09/09/24 17:39 PHQ-9: PHQ-9 Score PHQ-9: Total score 0 09/09/24 17:49 Depression Screening Interpretation: Negative Thrive Assessment: Date of Thrive Assessment Date Thrive assessed 09/08/24 09/09/24 17:29 Currently or been in a relationship where the following occur: No concerns reported [facility] Head: Yes normal to inspection, Yes normocephalic and Yes atraumatic Ears: external ears normal Eyes General: appearance normal, both eyes and all related structures Eyelids: Yes eyelids normal Conjunctivae: conjunctivae normal Neck Neck: Yes normal visual inspection and Yes supple Resp Effort & Inspection: normal respiratory effort Auscultation: clear to auscultation bilaterally Cardio Jugular venous distension: no JVD Rate: regular rate Rhythm: regular rhythm Heart sounds: S1 normal heart sound present and S2 normal heart sound present GI Inspection: Yes normal to inspection Palpation (GI): Soft to palpation and nontender Auscultation: normal bowel sounds Skin General skin exam: no rashes or lesions noted Neuro General: no focal motor deficits Extrem General: Yes full ROM Psych Appearance: grossly normal Immunizations Boostrix Tdap 2.5 Lf unit-8 mcg-5 Lf/0.5 mL intramuscular syringe Performing Provider: Liza Carlos MD [place] [facility] [place] [facility] Administered by: JOEL Low on 09/09/24 17:49 Dose Route Admin Location Dispensed Lot Number Expiration Date NDC Pharmacy Specialist 0.5 mL IM Left Deltoid 0.5 mL [id number] 11/20/26 [id number] [employer] VIS Given Date VIS Provided VIS Publication Date 09/09/24 Single Vaccine 24 Eligibility Eligibility Date Funding Source Not [facility] Eligible 09/09/24 Private Coding Level of Care Code Est Pt Prev Care 18-39y(13151) Diagnoses Physical exam Z00.00 Additional Codes ESA-7 Assessment Billing - ESA-7 Assessment Tool: ESA-7 Assessment 09787 ([id number]) Time Spent (min) 30 Assessment & Plan Assessment & Plan (1) Physical exam: Code(s): Z00.00 - Encounter for general adult medical examination without abnormal findings Category: Medical Plan I arranged a referral for a Pap smear to address the gap in the recommended two-year screening. The patient's iron deficiency anemia is currently stable, but I advised continued monitoring. Post sleeve gastrectomy, the patient's blood pressure has normalized, allowing cessation of antihypertensive therapy, with ongoing self-monitoring recommended. I confirmed current medications pantoprazole and sumatriptan could be cautiously utilized after surgery. Alcohol consumption should remain on special occasions, in line with her reported minimized usage. I encouraged continued adherence to her weight loss and health improvement strategies.: Patient was informed and verbally consented to the use of an ambient scribe for clinic note documentation during this visit. I discussed with the patient the need for Tdap vaccination to update her immunization status, which she agreed to receive. We reviewed the overdue Pap smear and a referral was provided to alleviate scheduling barriers. The patient expressed satisfaction with her post-surgical weight loss and blood pressure normalization freeing her from hypertension medication reliance; I emphasized sustained self-monitoring. The potential need for iron and vitamin supplementation was not discussed but remains a consideration given the anemia findings. I outlined careful progression back to normal activity and medication use with pantoprazole and sumatriptan as necessary. Alcohol should remain restricted to special occasions, and her compliance with these lifestyle choices was praised. Our dialogue centered on supporting her postoperative recovery and continuous weight management strategies. Orders: Orders TDaP Immunization Today Z23 - Encounter for immunization Referrals [facility] [facility] Referral Z12.4 - Encounter for screening for malignant neoplasm of cervix Medications: Refilled cetirizine (Allergy Relief (cetirizine)) 10 mg PO DAILY PRN 90 tabs 0RF allergy symptoms 90 days Patient Instructions: - Receive Tdap vaccine today. - Use referral provided to schedule a Pap smear. - Continue monitoring blood pressure regularly at home. - Limit alcohol consumption to special occasions. - Follow advised medication guidelines cautiously post-surgery. - Maintain current weight loss and lifestyle changes.
[2024-09-09 17:24] VITALS: BP 120/70; BMI 29.4
== END 2024-09-09 17:46 | disposition home or self-care (01) ==
LOC: HO.HMCH 17:21
PROVIDERS: PCP Internal Medicine; Visit Provider Internal Medicine
DX: Z00.00 Encounter for general adult medical examination without abnormal findings (principal); Z23 Encounter for immunization

== ENCOUNTER → 2024-09-09 17:21 | Outpatient (BNVA) | payer OTHER, SELFPAY | PROVIDERS: PCP Internal Medicine; Visit Provider Internal Medicine | DX: Z00.00 Encounter for general adult medical examination without abnormal findings (principal); Z23 Encounter for immunization | CPT/HCPCS: 90471; 90715; 96127 ==

== ENCOUNTER 2024-09-30 14:37 | Outpatient (AMB) | payer OTHER, SELFPAY ==
--- NOTE | 2024-09-30 14:26 | A.OFFVIS_ITS ---
VS Expanded 09/30/24 14:29 Height 5 ft 6 in Weight 172 lb 6 oz BMI 27.8 Intake Visit Reasons: TV PO LSG 08/18/24 Allergies No Known Allergies [No Known Allergies*] Allergy (Verified 09/09/24 17:33) Medication List - Last Reconciled 09/30/24 by HAILEY Salvador cetirizine (Allergy Relief (cetirizine)) 10 mg PO DAILY PRN 90 days pantoprazole 40 mg PO DAILY@0630 sucralfate mL PO sumatriptan succinate 50 - 100 mg orally at onset of headache, may repeat in 2 hrs PRN; max 2 tabs per day or 4 tabs/week (may take with Ibuprofen or Aleve) 30 days HPI Comments Details: This?is a?29?yo F who is s/p LSG 08/18/2024. Presents for 6w post op visit. Weight at last visit on 08/26/2024 was 182 pounds, weight today is 172.6 pounds, representing a 9.4 pound weight loss with a BMI today of 27.8.? No complaints of nausea, emesis, abdominal pain or reflux, or constipation. Present meal plan includes: starting solid food this week- meal of chicken/fish and gibran/cauli 7pm, 4 forks each 2oz Fairlife mixed with 6oz UAM Built bar x 2.5 MVI staying hydrated with water and Gatorade Zero Exercise routine includes: goes to gym, also walking at [facility] Medical History (Updated 09/09/24 @ 19:21 by Liza Carlos MD) COVID Upper respiratory infection Adult general medical exam Acute gastroenteritis BMI 33.0-33.9,adult Hypertension BMI 35.0-35.9,adult ESA (generalized anxiety disorder) Migraines Mild major depression, single episode Depression Obesity (BMI 30-39.9) Migraine without aura, not intractable Iron deficiency anemia Sickle cell trait Surgical History History of sleeve gastrectomy History of esophagogastroduodenoscopy (EGD) Hx of tonsillectomy Family History Father Hypertension Mother Migraines Hypertension Brother No problems noted. Social History (Updated 09/09/24 @ 17:39 by Liza Carlos MD) Household Members: Family Housing: House Are you a primary transition of care specialist to a significant other at home: No Do you presently have visiting nurse or other home services: No Alcohol intake: never Patient Tobacco Use Status: Never used Tobacco e-Cigarette/Vaping Use: Never Used Second Hand Smoke Exposure: No service: No Current occupational status: employed Current occupational exposures/hazards: No Cognitive needs: No Hearing needs: No Vision needs: No Quality Reporting (2019) Adult ([facility] ) Smoking risk assessment performed?: Yes Patient Tobacco Use Status: Never used Tobacco Telehealth Telehealth Telehealth Platform: Telephone Location of provider rendering services: other Location of patient: address on file Patient Identification confirmed using: Name, : Yes Patient verbally consented to treatment: Yes Patient verbally consented to billing insurance company: Yes Patient informed of any privacy concerns related to visit: Yes Minutes spent on Phone/Video with Pt.: 15 Assessment & Plan Assessment & Plan (1) Overweight: Code(s): E66.3 - Overweight Category: Medical (2) S/P laparoscopic sleeve gastrectomy: Code(s): Z98.84 - Bariatric surgery status Category: Surgical Plan Pt will continue communication with Dr Malik sommers. Cleared for all activity, no restrictions. Continue PPI/carafate course. RTC 6w.
[2024-09-30 14:29] VITALS: BMI 27.8
== END 2024-09-30 15:37 | disposition home or self-care (01) ==
LOC: HO.HBS 14:37
PROVIDERS: PCP Internal Medicine; Visit Provider Physician Assistant Surgical
DX: E66.3 Overweight (principal); Z98.84 Bariatric surgery status; Z68.27 Body mass index [BMI] 27.0-27.9, adult
CPT/HCPCS: 99024

== ENCOUNTER → 2024-09-30 14:37 | Outpatient (BNVA) | payer OTHER, SELFPAY | PROVIDERS: PCP Internal Medicine; Visit Provider Physician Assistant Surgical ==

== ENCOUNTER 2024-11-26 14:59 | Outpatient (AMB) | payer OTHER, SELFPAY ==
--- NOTE | 2024-11-26 15:01 | A.OFFVIS_ITS ---
VS Expanded 11/26/24 15:14 BP 125/83 Blood Pressure Location Rt brachial Blood Pressure Position Sitting Pulse 76 Pulse Source Pulse Oximeter Temp 97.8 F Temperature Source Temporal Artery Scan Pulse Oximetry 100 Oxygen Delivery Method Room Air Height 5 ft 6 in Weight 169 lb 12.8 oz BMI 27.4 Body Fat % 33.9 Body Fat Mass 57.6 Fat Free Mass 112.2 Visceral Fat Rating 5.0 Body Water % 47.5 Body Water Mass 80.6 Muscle Mass/Score 106.4 Basal Metabolic Rate/Score 1,552 Intake Visit Reasons: (OV) PO LSG 08/18/24 Allergies No Known Allergies (No Known Allergies*) Allergy (Verified 11/26/24 15:16) Medication List - Last Reconciled 11/26/24 by HAILEY Salvador cetirizine (Allergy Relief (cetirizine)) 10 mg PO DAILY PRN 90 days sumatriptan succinate 50 - 100 mg orally at onset of headache, may repeat in 2 hrs PRN; max 2 tabs per day or 4 tabs/week (may take with Ibuprofen or Aleve) 30 days HPI Comments Details: This?is a?29?yo F who is s/p LSG 08/18/2024. Presents for 3mo post op visit. Weight loss of 2.8lbs since last OV 09/30/2024.? No complaints of nausea, emesis, abdominal pain or reflux, or constipation. Pt reports she was 165lbs on home scale. Present meal plan includes: 2oz Fairlife protein shake mixed with 6oz UAM 4oz Fairlife with 4oz UAM Built bar x 2 meal of chicken/fish and gibran/cauli 7pm, 4 forks each at nighttime, if hungry- tries to eat berries MVI- but causes some nausea staying hydrated with water and Gatorade Zero dealing with cravings Exercise routine includes: was walking at [employer] less exercise the last few weeks - too tired after work [facility] Medical History (Updated 09/09/24 @ 19:21 by Liza Carlos MD) COVID Upper respiratory infection Adult general medical exam Acute gastroenteritis BMI 33.0-33.9,adult Hypertension BMI 35.0-35.9,adult ESA (generalized anxiety disorder) Migraines Mild major depression, single episode Depression Obesity (BMI 30-39.9) Migraine without aura, not intractable Iron deficiency anemia Sickle cell trait Surgical History History of sleeve gastrectomy History of esophagogastroduodenoscopy (EGD) Hx of tonsillectomy Family History Father Hypertension Mother Migraines Hypertension Brother No problems noted. Social History (Updated 09/09/24 @ 17:39 by Liza Carlos MD) Household Members: Family Housing: House Are you a primary floor care technician to a significant other at home: No Do you presently have visiting nurse or other home services: No Alcohol intake: never Patient Tobacco Use Status: Never used Tobacco e-Cigarette/Vaping Use: Never Used Second Hand Smoke Exposure: No service: No Current occupational status: employed Current occupational exposures/hazards: No Cognitive needs: No Hearing needs: No Vision needs: No Quality Reporting (2019) Adult ([facility] ) Smoking risk assessment performed?: Yes Patient Tobacco Use Status: Never used Tobacco Assessment & Plan Assessment & Plan (1) S/P laparoscopic sleeve gastrectomy: Code(s): Z98.84 - Bariatric surgery status Category: Medical (2) Overweight: Code(s): E66.3 - Overweight Category: Medical Plan Pt to continue meal plan per Dr Barbosa Suggested moving one protein bar earlier in the day if she is feeling hungry. Suggested exercise in early AM prior to work rather than after work, so that she can be more consistent. She will recheck her weight next week on home scale- was due to have a menstrual cycle, possibly retaining fluid. RTC 3mo.
[2024-11-26 15:14] VITALS: BP 125/83; PULSE 76; TEMP 36.6; O2SAT 100; BMI 27.4
== END 2024-11-26 15:40 | disposition home or self-care (01) ==
LOC: HO.HBS 15:00
PROVIDERS: PCP Internal Medicine; Visit Provider Physician Assistant Surgical
DX: E66.3 Overweight (principal); Z68.27 Body mass index [BMI] 27.0-27.9, adult; Z90.3 Acquired absence of stomach [part of]; Z98.84 Bariatric surgery status
CPT/HCPCS: 99213; G2211

== ENCOUNTER 2025-01-15 07:07 | Outpatient (AMB) | payer OTHER, SELFPAY ==
[2025-01-15 07:08] VITALS: BP 112/72; PULSE 79; RESP 16; TEMP 37.1; O2SAT 98; BMI 28.1
--- NOTE | 2025-01-15 07:08 | AM.OFFWIN_ITS ---
Intake Vital Signs 01/15/25 07:08 Height 5 ft 6 in Weight 174 lb BMI 28.1 BP 112/72 Blood Pressure Location Rt brachial Position Sitting Respiration 16 Pulse 79 Pulse Source Pulse Oximeter Temp 98.7 F Temp Source Oral Pulse Oximetry (%) 98 Oxygen Delivery Method Room Air Intake Visit Reasons: EP- test Intake Note: Pt is here today ? just had a gastric procedure x1 month ago Patient Tobacco Use Status: Never used Tobacco Allergies No Known Allergies (No Known Allergies*) Allergy (Verified 01/15/25 07:14) HPI HPI Comments History of Present Illness Details History of Present Illness - The patient is a 29-year-old female pr esenting with concerns about a possible following recent bariatric surgery. - She underwent a gastric sleeve procedu re in August 2024 and was advised to avoid for at least a year post-surgery. - The patient reports a positive home pr egnancy test but is unsure of the gestational age due to irregular menstrual cycles. Does not know when LMP was. - She has a history of hormonal imbalan ce and was previously informed that natural conception might be challenging so she was not taking precautions as she didn't think she could get . - She is very upset about this unexpecte d event, especially in light of being so fresh from surgery and eating restrictions post surgery and nutritional needs and challenges of . - She does not believe in so th at is not an option for her - She declines any help from a therapist today Physical Exam General: Cooperative, healthy appearing, comfortable, teary and well developed Orientation: Patient oriented x3 Limitations: No limitations Head: Normal to inspection Ears: Hearing grossly normal bilaterally Nose: Normal External nose present Face and sinus: Normal facial exam Eyes: Appearance normal, both eyes and all related structures Neck: Normal visual inspection and Yes full ROM Respiratory: Normal respiratory effort and able to speak in complete sentences. Skin: No rashes or lesions noted Neuro: Patient oriented x3 Extremities: Normal to inspection [facility] Medical History (Updated 01/15/25 @ 07:37 by Liliam Dixon PA-C) COVID Upper respiratory infection Adult general medical exam Acute gastroenteritis BMI 33.0-33.9,adult Hypertension BMI 35.0-35.9,adult ESA (generalized anxiety disorder) Migraines Mild major depression, single episode Depression Obesity (BMI 30-39.9) Migraine without aura, not intractable Iron deficiency anemia Sickle cell trait Surgical History History of sleeve gastrectomy History of esophagogastroduodenoscopy (EGD) Hx of tonsillectomy Family History Father Hypertension Mother Migraines Hypertension Brother No problems noted. Social History Household Members: Family Housing: House Are you a primary child care center assistant director to a significant other at home: No Do you presently have visiting nurse or other home services: No Alcohol intake: never Patient Tobacco Use Status: Never used Tobacco e-Cigarette/Vaping Use: Never Used Second Hand Smoke Exposure: No service: No Current occupational status: employed Current occupational exposures/hazards: No Cognitive needs: No Hearing needs: No Vision needs: No Review of Systems Const All systems reviewed & are unremarkable except as noted in HPI and below Physical Exam Vital Signs: Last Vital Signs Temp 98.7 F 01/15/25 07:08 Pulse 79 01/15/25 07:08 Resp 16 01/15/25 07:08 BP 112/72 01/15/25 07:08 Pulse Ox 98 01/15/25 07:08 Oxygen Delivery Method Room Air 01/15/25 07:08 BMI result Body Mass Index 28.1 Results AMB Test Urine AMB Test Urine Positive Last Edit by Amanda Mac CMA on 07:26 Assessment & Plan Assessment & Plan (1) Positive urine test: Code(s): Z32.01 - Encounter for test, result positive Plan: Patient was informed and verbally consented to the use of an ambient scribe for clinic note documentation during this visit. - The patient should contact her bariatric surgeon to discuss the implications of 5 months post-surgery. - Blood tests are recommended as patient has no idea when her LMP was due to irregular periods. Messaged Dr Marquez. - Establish care with an e learning manager-greenhouse transplanter is advised for ongoing management. - Messaged both her Bariatric surgeon and her soon to be Ob-Steel Die [employer]inter Dr Marquez (she has an appt to [facility] in March) to discuss what she needs to do differently now that she is . Orders: Orders AMB HCG Urine Test Today Z32.01 - Encounter for test, result positive Coding Level of Care Code Est Pt Level 3 (42827) Diagnoses Positive urine test Z32.01
== END 2025-01-15 08:30 | disposition home or self-care (01) ==
PROVIDERS: PCP Internal Medicine; Visit Provider Physician Assistant
DX: Z32.01 Encounter for pregnancy test, result positive (principal)

== ENCOUNTER → 2025-01-15 07:07 | Outpatient (BNVA) | payer OTHER, SELFPAY | PROVIDERS: PCP Internal Medicine; Visit Provider Physician Assistant | DX: N92.6 Irregular menstruation, unspecified (principal); Z32.01 Encounter for pregnancy test, result positive; Z98.84 Bariatric surgery status | CPT/HCPCS: 81025 ==

== ENCOUNTER 2025-01-30 10:23 | Outpatient (REF) | payer OTHER, SELFPAY ==
[2025-01-30 10:42] LABS: MANUAL DIFF FLAG NO
[2025-01-30 11:07] LABS: Hematocrit 34.1 % (37.0-47.0); Hemoglobin 11.5 g/dl (12.0-16.0); Imm Gran Abs Auto 0.02 X10*3/uL (0.00-0.03); Imm Gran Pct Auto 0.3 % (0.0-0.4); Lymphocytes Absolute Auto 1.5 X10*3/uL (1.2-4.9); Mean Corpuscular HGB Conc 33.7 g/dl (31.0-35.0); Mean Corpuscular Hemoglobin 26.3 pg (27.0-33.0); Mean Corpuscular Volume 78.0 fL (80.0-98.0); NRBC Abs Auto 0.000 X10*3/uL (0.0-0.012); NRBC Pct Auto 0.0 /100WBC (0.0-0.2); Platelet Count 265 X10*3/uL (160-400); Red Blood Count 4.37 X10*6/uL (4.20-5.50); White Blood Count 6.3 X10*3/uL (4.8-10.8)
[2025-01-30 11:17] LABS: Hemoglobin A1C 88.2285 umol/L; Total Hemoglobin (HGBA1C) 3070.9618 umol/L
[2025-01-30 11:49] LABS: Alanine Aminotransferase 12 U/L (0-31); Albumin Level 4.2 g/dL (3.5-5.0); Alkaline Phosphatase 70 U/L (39-117); Anion Gap 9 (12-20); Aspartate Amino Transferase 17 U/L (5-31); Blood Urea Nitrogen 10 mg/dL (9-16); Calcium 9.2 mg/dL (8.4-10.2); Carbon Dioxide 25 mmol/L (22-29); Chloride 110 mmol/L (96-108); Cholesterol 162 mg/dL (<200); Estimated Glomerular Filt Rate > 60; HDL Cholesterol 48 mg/dL (>40); Iron 182 mcg/dL (30-160); Percent Iron Saturation 68 % (15-50); Potassium 4.6 mmol/L (3.3-5.1); Sodium 139 mmol/L (135-145); Total Iron Binding Capacity 267 mcg/dL (228-428); Total Protein 6.7 g/dL (6.5-8.0); Triglycerides 49 mg/dL (<150); Unsaturated Iron Binding 85 ug/dL
[2025-01-30 12:05] LABS: Ferritin 106 ng/mL (10-122)
[2025-01-30 13:30] LABS: Folate 13.4 ng/mL (> or = 4.0); Vitamin B12 1205 pg/mL (200-900)
== END 2025-01-30 10:24 | disposition home or self-care (01) ==
LOC: HO.LAB 10:23
PROVIDERS: PCP Internal Medicine; Visit Provider Physician Assistant Surgical
DX: Z13.1 Encounter for screening for diabetes mellitus (principal); Z13.29 Encounter for screening for other suspected endocrine disorder; Z13.6 Encounter for screening for cardiovascular disorders; Z98.84 Bariatric surgery status
CPT/HCPCS: 36415; 80053; 80061; 82306; 82607; 82728; 82746; 83036; 83525; 83540; 84425; 84443; 84590; 84630; 85025; 86140

== ENCOUNTER 2025-03-04 14:44 | Outpatient (AMB) | payer OTHER, SELFPAY ==
--- NOTE | 2025-03-04 15:06 | MHC.OFFVISWM ---
VS Expanded 03/04/25 15:17 BP 135/84 Blood Pressure Location Rt brachial Blood Pressure Position Sitting Pulse 97 Pulse Source Pulse Oximeter Temp 98.2 F Temperature Source Temporal Artery Scan Pulse Oximetry 100 Oxygen Delivery Method Room Air Height 5 ft 6 in Weight 161 lb 9.6 oz BMI 26.1 Body Fat % 32.1 Body Fat Mass 51.8 Fat Free Mass 109.8 Visceral Fat Rating 4.0 Body Water % 48.7 Body Water Mass 78.8 Muscle Mass/Score 104.2 Basal Metabolic Rate/Score 1,513 Intake Visit Reasons: (OV) PO LSG 08/18/24 Allergies No Known Allergies (No Known Allergies*) Allergy (Verified 01/15/25 07:14) Medication List - Last Reconciled 03/04/25 by HAILEY Salvador [id number] 45 mg iron-800 mcg DFE-120 mcg (Bariatric Multivitamins) caps PO HPI Comments Details: This is a 29 yo F who is s/p LSG 08/18/2024. Presents for 6mo post op visit. She found out last month that she is . She believes she is 10 weeks , had an US early on to confirm, but has not seen OB yet- going in March. Due in September. She notes she has had an aversion to protein shakes, but has tried to get more whole foods. Present meal plan includes: 2oz Fairlife protein shake mixed with 6oz UAM 4oz Fairlife with 4oz UAM Built bar x 2 meal of chicken/fish and gibran/cauli 7pm, 4 forks each at nighttime, if hungry- tries to eat berries MVI- but causes some nausea staying hydrated with water and Gatorade Zero dealing with cravings Exercise routine includes: was walking at [employer] less exercise the last few weeks - too tired after work [facility] Medical History (Updated 01/15/25 @ 07:37 by Liliam Dixon PA-C) COVID Upper respiratory infection Adult general medical exam Acute gastroenteritis BMI 33.0-33.9,adult Hypertension BMI 35.0-35.9,adult ESA (generalized anxiety disorder) Migraines Mild major depression, single episode Depression Obesity (BMI 30-39.9) Migraine without aura, not intractable Iron deficiency anemia Sickle cell trait Surgical History History of sleeve gastrectomy History of esophagogastroduodenoscopy (EGD) Hx of tonsillectomy Family History Father Hypertension Mother Migraines Hypertension Brother No problems noted. Social History Household Members: Family Housing: House Are you a primary child care associate teacher to a significant other at home: No Do you presently have visiting nurse or other home services: No Alcohol intake: never Patient Tobacco Use Status: Never used Tobacco e-Cigarette/Vaping Use: Never Used Second Hand Smoke Exposure: No service: No Current occupational status: employed Current occupational exposures/hazards: No Cognitive needs: No Hearing needs: No Vision needs: No Quality Reporting (2019) Adult ([facility] 138/07/04/68) Smoking risk assessment performed?: Yes Patient Tobacco Use Status: Never used Tobacco Assessment & Plan Assessment & Plan (1) S/P laparoscopic sleeve gastrectomy: Code(s): Z98.84 - Bariatric surgery status Category: Surgical (2) Positive urine test: Code(s): Z32.01 - Encounter for test, result positive Category: Medical Plan Pt is trying to get enough protein in through whole foods. Gave handout. Discussed ideal weight gain goal of 15-25lbs. Previous labs reviewed. Labs ordered for next trimester. She is already taking a caren MVI. She will text me with any concerns. Scheduled for OB follow up next month. RTC 3mo. Orders: Orders IRON PROFILE Today Z.84 - Bariatric surgery status Lipid Panel Today Z.84 - Bariatric surgery status Vitamin B12 and Folate Today Z.84 - Bariatric surgery status Vitamin A Today Z.84 - Bariatric surgery status TSH reflex Free T4 Today Z.84 - Bariatric surgery status Vitamin D 25-OH Total Today Z.84 - Bariatric surgery status Insulin Today Z.84 - Bariatric surgery status Complete Blood Count Auto Diff Today Z.84 - Bariatric surgery status Comprehensive Met. Panel Today Z.84 - Bariatric surgery status Zinc Today Z98.84 - Bariatric surgery status Vitamin B1 Today Z.84 - Bariatric surgery status C Reactive Protein Today Z.84 - Bariatric surgery status Ferritin Today Z98.84 - Bariatric surgery status Hemoglobin A1c Today Z98.84 - Bariatric surgery status
[2025-03-04 15:17] VITALS: BP 135/84; PULSE 97; TEMP 36.8; O2SAT 100; BMI 26.1
== END 2025-03-04 15:50 | disposition home or self-care (01) ==
LOC: HO.HBS 14:45
PROVIDERS: PCP Internal Medicine; Visit Provider Physician Assistant Surgical
DX: E66.3 Overweight (principal); Z68.26 Body mass index [BMI] 26.0-26.9, adult; Z90.3 Acquired absence of stomach [part of]; Z98.84 Bariatric surgery status; Z32.01 Encounter for pregnancy test, result positive
CPT/HCPCS: 99213; G2211